=== PATIENT | female | born 1955 | race Two or more races ===

== ENCOUNTER 2019-05-19 04:54 | Emergency (ER) | payer OTHER ==
[~2019-05-19] VITALS: Ht 170.2 cm; Wt 81.6 kg
[2019-05-19] MEDS ORDERED: MORPHINE SULFATE 4 MG/ML SYR/VIAL IV ONE ×3 (06:00→13:15)
[2019-05-19] MEDS ORDERED: ONDANSETRON HCL 4 MG/2 ML VIAL IV ONE ×3 (06:00→13:15)
[2019-05-19 06:40] LABS: Basophils # (auto) 0.1 uL; Basophils % (auto) 0.5 % (0.0-2.0); Eosinophils # (auto) 0.2 uL; Eosinophils % (auto) 1.7 % (0.0-7.0); Hematocrit 41.8 % (36.0-46.0); Hemoglobin 13.5 g/dL (12.2-16.2); Lymphocytes # (auto) 1.4 uL; Lymphocytes % (auto) 12.5 % (10.0-50.0); Mean Corpuscular Hemoglobin 29.6 pg (28.0-32.0); Mean Corpuscular Hgb Conc. 32.3 g/dL (32.0-36.0); Mean Corpuscular Volume 91.7 fL (80.0-100.0); Monocytes # (auto) 0.6 uL; Monocytes % (auto) 5.6 % (0.0-12.0); Neutrophils # (auto) 8.9 uL; Neutrophils % (auto) 79.7 % (37.0-80.0); Platelet Count (auto) 229 10^3/uL (140-450); Red Blood Cells 4.56 10^6/uL (4.0-5.20); Red Cell Distribution Width 15.6 % (11.8-14.3); White Blood Cell 11.1 10^3/uL (4.4-10.8)
[2019-05-19 06:52] LABS: INR 2.22 (0.9-1.15); Partial Thromboplastin Time 32.9 sec (23.64-32.05)
[2019-05-19 08:44] LABS: Albumin 3.3 g/dL (3.4-5.0); BUN/Creatinine Ratio 20.9; Bilirubin, Total 0.3 mg/dL (0.2-1.0); Calcium 8.7 mg/dL (8.5-10.1); Total Protein 7.9 g/dL (6.4-8.2)
[2019-05-19] MEDS ORDERED: cefTRIAXone 1GM/50ML D5W 50 ML IV ONE (10:00)
[2019-05-19 13:27] VITALS: BP 171/91
== END 2019-05-19 14:07 | disposition short-term general hospital (02) ==
LOC: EDBD 04:54 → ER 04:54
DX: S42.215A Unspecified nondisplaced fracture of surgical neck of left humerus, initial encounter for closed fracture (principal); S80.02XA Contusion of left knee, initial encounter; E11.9 Type 2 diabetes mellitus without complications; E78.5 Hyperlipidemia, unspecified; Z86.73 Personal history of transient ischemic attack (TIA), and cerebral infarction without residual deficits; F17.210 Nicotine dependence, cigarettes, uncomplicated; W01.0XXA Fall on same level from slipping, tripping and stumbling without subsequent striking against object, initial encounter; Y93.89 Activity, other specified; Y99.8 Other external cause status; Y92.89 Other specified places as the place of occurrence of the external cause
CPT/HCPCS: 36415; 70450; 71045; 73030; 73562; 80053; 84484; 85025; 85610; 85730; 93005; 96365; 96375; 96376; 99285; J0696; J2270; J2405

== ENCOUNTER 2025-01-01 19:30 | Inpatient (IN) | payer MEDICARE, MEDICAID ==
[~2025-01-01] VITALS: Ht 157.5 cm; Wt 71.0 kg
[~2025-01-01 19:30] MED LIST: LEVO75TA6 PO; WARF-66 PO
--- NOTE | 2025-01-01 21:23 | DVH ---
CHEST RADIOGRAPH Indication: gen weak Technique: Single frontal view of the chest was obtained COMPARISON: None FINDINGS: Lines and Tubes: None Lungs: Clear Pleura: No effusion. No pneumothorax. Cardiomediastinal contours: Unremarkable Bones: Unremarkable IMPRESSION: No acute disease.
--- NOTE | 2025-01-01 21:41 | ED.PDOC ---
History of Present Illness HPI Comments 69-year-old female brought in by ambulance with a chief complaint of failure to thrive. EMS report that the patient's neighbors heard the patient yelling for help and called 911, for which police, firefighters and EMS arrived on scene for which they broke down the front door. When police entered they went and found the patient in the bedroom next to her who is also her undraped artist model. EMS note that the pain has been was for the past three days. Patient does have a history of dementia, blindness, diabetes and is bed-bound. Denies chills, fever, N/V/D, SOB, CP. No other associated symptoms, modifiers, recent injuries or sick contacts present at this time. Chief Complaint: Failure to Thrive Time Seen by MD: 21:30 Reviewed Notes: Nurses Notes, Medications, Allergies Allergies: Coded Allergies: NO KNOWN ALLERGIES (Unverified , 01/01/25) Information Source: Patient, Emergency Med Personnel Mode of Arrival: Ambulatory Severity: Moderate Timing: Days Duration: Since onset, Days Prehospital treatment: None Past Medical History PAST MEDICAL HISTORY: Dementia, DM, Denies Past Medical History (Other): blindness Surgical History: Denies all surgeries AUTOMOTIVE EXHAUST EMISSIONS TECHNICIAN History: No Pertinent AUTOMOTIVE EXHAUST EMISSIONS TECHNICIAN History Family History Family History: Reviewed,noncontributory to illness, Unknown Social History Smoker: Non-Smoker Alcohol: Denies ETOH Use Drugs: Denies Drug Use Lives In: Home Constitutional: denies: chills, diaphoresis, fatigue, fever, malaise, sweats, weakness, others EENTM: denies: blurred vision, double vision, ear bleeding, ear discharge, ear drainage, ear pain, ear ringing, eye pain, eye redness, hearing loss, mouth pain, mouth swelling, nasal discharge, nose bleeding, nose congestion, nose pain, photophobia, tearing, throat pain, throat swelling, voice changes, others Respiratory: denies: cough, hemoptysis, orthopnea, SOB at rest, shortness of breath, SOB with excertion, stridor, wheezing, others Cardiovascular: denies: chest pain, dizzy spells, diaphoresis, Dyspnea on exertion, edema, irregular heart beat, left arm pain, lightheadedness, palpitations, PND, syncope, others Gastrointestinal: denies: abdomen distended, abdominal pain, blood streaked bowels, constipated, diarrhea, dysphagia, difficulty swallowing, hematemesis, melena, nausea, poor appetite, poor fluid intake, rectal bleeding, rectal pain, vomiting, others Genitourinary: denies: abnormal vagina bleeding, burning, dyspareunia, dysuria, flank pain, frequency, hematuria, incontinence, pain, , vagina discharge, urgency, others Neurological: denies: dizziness, fainting, headache, left sided numbness, left sided weakness, numbness, paresthesia, pre-existing deficit, right sided numbness, right sided weakness, seizure, speech problems, tingling, tremors, weakness, others Musculoskeletal: denies: back pain, gout, joint pain, joint swelling, muscle pain, muscle stiffness, neck pain, others Integumetry: denies: bruises, change in color, change in hair/nails, dryness, laceration, lesions, lumps, rash, wounds, others Allergic/Immunocompromised: denies: Difficulty Healing, Frequent Infections, Hives, Itching, others Hematologic/Lymphatic: denies: anemia, blood clots, easy bleeding, easy bruising, swollen glands, others Endocrine: denies: excessive hunger, excessive sweating, excessive thirst, excessive urination, flushing, intolerance to cold, intolerance to heat, unexplained weight gain, unexplained weight loss, others Psychiatric: reports: others (Failure to thrive); denies: anxiety, bipolar disorder, depression, hopeless, panic disorder, schizophrenia, sleepless, suicidal All Other Systems: Reviewed and Negative Physical Exam Exam Comments Mild pain in the buttock area, chief marketing officer arrived and spoke to patient General Appearance: No Apparent Distress, Normal HEENT: Normal ENT Inspection, Pharynx Normal, TMs Normal Neck: Full Range of Motion, Non-Tender, Normal, Normal Inspection Respiratory: Chest Non-Tender, Lungs Clear, No Accessory Muscle Use, No Respiratory Distress, Normal Breath Sounds Cardiovascular: No Edema, No JVD, No Murmur, No Gallop, Normal Peripheral Pulses, Regular Rate/Rhythm Breast Exam: Deferred Gastrointestinal: No Organomegaly, Non Tender, No Pulsatile Mass, Normal Bowel Sounds, Soft Genitalia: Deferred Pelvic: Deferred Rectal: Deferred Extremities: No calf tenderness, Normal capillary refill, Normal inspection, Normal range of motion, Non-tender, No pedal edema Musculoskeletal : Apperance: Normal Neurologic: Alert, vice president for philanthropy II-XII nml as Tested, No Motor Deficits, Normal Affect, Normal Mood, No Sensory Deficits Cerebellar Function: Normal Reflexes: Normal Skin: Dry, Normal Color, Warm Lymphatic: No Adenopathy Was a procedure done? Was a procedure done?: No Differential Dx Considerations may include: Urosepsis, UTI, dementia, failure to thrive, X-Ray, Labs, Meds, VS Vital Signs Date Time Temp Pulse Resp B/P (MAP) Pulse Ox O2 Delivery O2 Flow Rate FiO2 01/01/25 19:32 99.1 106 15 160/96 99 99.1 01/01/25 19:30 107 Lab Test 01/01/25 21:32 Range/Units White Blood Count 13.8 H 4.4-10.8 10^3/uL Red Blood Count 4.05 4.0-5.20 10^6/uL Hemoglobin 12.5 12.2-16.2 g/dL Hematocrit 36.8 36.0-46.0 % Mean Corpuscular Volume 90.9 80.0-100.0 fL Mean Corpuscular Hemoglobin 31.0 28.0-32.0 pg Mean Corpuscular Hemoglobin Concent 34.1 32.0-36.0 g/dL Red Cell Distribution Width 14.2 11.8-14.3 % Platelet Count 178 140-450 10^3/uL Mean Platelet Volume 8.7 6.9-10.8 fL Neutrophils (%) (Auto) 84.2 H 37.0-80.0 % Lymphocytes (%) (Auto) 9.0 L 10.0-50.0 % Monocytes (%) (Auto) 6.6 0.0-12.0 % Eosinophils (%) (Auto) 0.0 0.0-7.0 % Basophils (%) (Auto) 0.2 0.0-2.0 % Neutrophils # (Auto) 11.6 H 1.6-8.6 10 ^3/uL Lymphocytes # (Auto) 1.2 0.4-5.4 10 ^3/uL Monocytes # (Auto) 0.9 0-1.3 10 ^3/uL Eosinophils # (Auto) 0 0-0.8 10 ^3/uL Basophils # (Auto) 0 0-0.2 10 ^3/uL Nucleated Red Blood Cells 0.0 % Sodium Level 149 H 136-145 mmol/L Potassium Level 3.6 3.5-5.1 mmol/L Chloride Level 109 H 98-107 mmol/L Carbon Dioxide Level 26 20-31 mmol/L Anion Gap 14 5-15 Blood Urea Nitrogen 39 H 9-23 mg/dL Creatinine 1.09 H 0.550-1.02 mg/dL Glomerular Filtration Rate Calc 55 >90 mL/min BUN/Creatinine Ratio 35.8 H 10.0-20.0 Serum Glucose 160 H 74-106 mg/dL Lactic Acid Level 1.8 0.4-2.0 mmol/L Calcium Level 9.4 8.7-10.4 mg/dL Total Bilirubin 0.9 0.2-1.0 mg/dL Aspartate Amino Transferase (AST) 60 H 13-40 U/L Alanine Aminotransferase (ALT) 17 7-40 U/L Alkaline Phosphatase 94 46-116 U/L Ammonia < 10 L 11-32 umol/L Total Protein 7.7 5.7-8.2 g/dL Albumin 4.5 3.2-4.8 g/dL X-Ray, Labs, Meds, VS Comment Patient will be admitted for urinary tract infection Recommend social service consult as patient's caregiver Time of 1ST Reevaluation: 22:00 Reevaluation 1ST: Unchanged Patient Education/Counseling: Diagnosis, Treatment, Prognosis Family Education/Counseling: No Family Present SEPSIS Sepsis Screen Date sepsis recognized/suspect: Jan 01, 2025 Time Sepsis recognized/suspect: 1931 Recent Procedure: No On Antibiotic Therapy: No Respiratory Rate >20: No Heart Rate >90: Yes Temp<36 C (96.8 F) or >38.3 C: No SBP <90 or MAP <65 mmHG: No New Acute Mental Status Change: No Is the patient on CPAP, BIPAP,: No Physician Orders Electrocardigram (01/01/25 19:33) Urinalysis (01/01/25 20:57) Chest Xray 1 View (01/01/25 20:57) Drug Screen (01/01/25 20:57) Sodium Chloride 0.9% (01/02/25 01:30) Ceftriaxone 1gm/50ml (Rocephin) (01/02/25 01:30) Vital Signs Date Time Temp Pulse Resp B/P (MAP) Pulse Ox O2 Delivery O2 Flow Rate FiO2 01/01/25 19:32 99.1 106 15 160/96 99 99.1 01/01/25 19:30 107 Laboratory Tests Test 01/01/25 21:32 Lactic Acid Level 1.8 mmol/L (0.4-2.0) White Blood Count 13.8 10^3/uL (4.4-10.8) H Departure 1 Departure Time of Disposition: 01:25 Impression: Primary Impression: Dehydration Additional Impressions: PAVAN (acute kidney injury) Dementia Qualified Codes: G30.9 - Alzheimer's disease, unspecified; F02.A0 - Dementia in other diseases classified elsewhere, mild, without behavioral disturbance, psychotic disturbance, mood disturbance, and anxiety Diabetes Qualified Codes: E11.69 - Type 2 diabetes mellitus with other specified complication Urinary tract infection Qualified Codes: N30.00 - Acute cystitis without hematuria Disposition: ADMITTED INPATIENT Condition: Stable Critical Care Note Critical Care Time?: No Stability Stability form required: No Heart Score Heart Score: Heart Score Response (Comments) Value History N/A 0 EKG N/A 0 Age N/A 0 Risk Factors N/A 0 Troponin N/A 0 Total 0 I personally scribed for MISTY POLLACK ([email or web address]) on 01/01/25 at 21:41. Electronically submitted by Petar Fisher ([email or web address]). MISTY POLLACK Jan 01, 2025 21:41
[2025-01-01 21:54] LABS: Hematocrit 36.8 % (36.0-46.0); Hemoglobin 12.5 g/dL (12.2-16.2); Mean Corpuscular Hemoglobin 31.0 pg (28.0-32.0); Mean Corpuscular Volume 90.9 fL (80.0-100.0); Nucleated Red Blood Cells % 0.0 %
[2025-01-01 22:01] LABS: Alanine Aminotransferase 17 U/L (7-40); Albumin 4.5 g/dL (3.2-4.8); Alkaline Phosphatase 94 U/L (46-116); Anion Gap 14 (5-15); BUN/Creatinine Ratio 35.8 (10.0-20.0); Calcium 9.4 mg/dL (8.7-10.4); Carbon Dioxide 26 mmol/L (20-31); Potassium 3.6 mmol/L (3.5-5.1); Total Protein 7.7 g/dL (5.7-8.2)
[2025-01-01 22:02] LABS: Bilirubin, Total 0.9 mg/dL (0.2-1.0)
[2025-01-01 22:05] LABS: Blood Urea Nitrogen 39 mg/dL (9-23); Chloride 109 mmol/L (98-107); Glucose 160 mg/dL (74-106); Sodium 149 mmol/L (136-145)
[2025-01-02] MEDS: SODIUM CHLORIDE 0.9% 1,000 ML IV ONE ×2 (01:30→06:38)
[2025-01-02 02:43] LABS: Hematocrit 37.0 % (36.0-46.0); Hemoglobin 12.2 g/dL (12.2-16.2); Mean Corpuscular Hemoglobin 30.2 pg (28.0-32.0); Mean Corpuscular Volume 91.8 fL (80.0-100.0); Nucleated Red Blood Cells % 0.0 %
[2025-01-02] MEDS ORDERED: DEXTROSE (50%) 50ML SYRG IV PRN (02:45)
[2025-01-02 02:58] LABS: Alanine Aminotransferase 21 U/L (7-40); Albumin 4.4 g/dL (3.2-4.8); Alkaline Phosphatase 92 U/L (46-116); Anion Gap 13 (5-15); BUN/Creatinine Ratio 31.6 (10.0-20.0); Bilirubin, Total 1.0 mg/dL (0.2-1.0); Calcium 9.4 mg/dL (8.7-10.4); Carbon Dioxide 25 mmol/L (20-31); Chloride 106 mmol/L (98-107); Potassium 3.6 mmol/L (3.5-5.1); Sodium 144 mmol/L (136-145); Total Protein 7.5 g/dL (5.7-8.2)
[2025-01-02 03:00] LABS: Creatine Kinase IFCC 1187.0 U/L (34-145)
[2025-01-02 03:02] LABS: Blood Urea Nitrogen 36 mg/dL (9-23); Glucose 136 mg/dL (74-106)
--- NOTE | 2025-01-02 03:08 | DVHHPRES ---
History of Present Illness Resident Creating Document: SHAHRZAD FLAHERTY History of Present Illness Ms. Mc is a 69-year-old bed-bound female with prior medical history of type 1 diabetes, multiple strokes, hypertension, hyperlipidemia, mild dementia, and hypothyroidism, who presents today with chief complaint of failure to thrive. history was taken from both the patient and her son Mark Anthony. They state that the patient's and primary document analyst in his sleep approximately 3 days ago and in bed next to her for that time. She was heard yelling for help by her neighbors who contacted 911, and was subsequently brought to the emergency department. The patient states she was unable to eat or drink liquids at this time. on evaluation in the ED, the patient was tachycardic and hypertensive. Initial labs show WBCs 13.8 with neutrophilia, hypernatremia, creatinine 1.09, creatinine kinase 1187, and TSH 19.62. UA is significant for U TI. Chest x-ray shows no acute disease. The patient was started on IV fluids and IV antibiotics. She was admitted for further workup and monitoring. Personal history: Type 1 diabetes mellitus, multiple strokes, hypertension, hyperlipidemia, mild dementia, and hyperthyroidism Surgical history: Denies Allergies: Coconut (anaphylaxis) Social: Son denies any previous drug, alcohol, or tobacco use, was living with her until his passing 3 days ago, her son Mark Anthony currently lives in [place] Review of Systems Review of Systems ROS is unable to be fully evaluated due to patient's baseline disorientation She currently states she is very thirsty Allergies: Coded Allergies: Coconut (Cocos Nucifera) (Verified Allergy, Severe, 01/02/25) Anaphylaxis Medications Current Medications Medications Dose Ordered Sig/Lillie Route Start Time Stop Time Status Last Admin Dose Admin Diagnostic Test (Pha) 1 strip ACHS 01/02/25 07:00 Insulin Human Regular ACHS SC 01/02/25 07:00 Dextrose 50 ml UD PRN IV 01/02/25 02:45 Lisinopril 10 mg DAILY PO 01/02/25 10:00 Atorvastatin Calcium 20 mg HS PO 01/02/25 22:00 Enoxaparin Sodium 70 mg Q12HR SC 01/02/25 02:45 UNV Sodium Chloride 1,000 ml @ 75 mls/hr [id number] IV 01/02/25 02:45 Exam Vital Signs Vital Signs Date Time Temp Pulse Resp B/P (MAP) Pulse Ox O2 Delivery O2 Flow Rate FiO2 01/01/25 19:32 99.1 106 15 160/96 99 99.1 Exam General: Patient is AOx2, follows commands HEENT: Normocephalic, atraumatic, normal reactive pupils, EOM intact, pink conjunctiva, pink dry mucous membrane, poor dentition, presence of large circular mass that is nontender to the touch and is mobile Respiratory/pulmonary: Bilateral chest expansion, no pain on palpation of chest wall, clear lungs bilaterally, vesicular murmurs present in almost all lung shaffer, no associated crackles or wheezes. Cardiovascular: Normal RRR, normal S1 and S2, no murmurs Abdomen: Abdomen nondistended, normal bowel sounds, soft, there is no pain to palpation in any of the abdominal quadrants, no palpable masses : Entire perineum and area including mons pubis has presence of bright red beefy rash that is painful to the touch, presence of Rodas catheter Extremities: No deformities, there is no peripheral edema present at the lower extremities, normal pulses Skin: Presence of sacral edema with minor breakdown of skin (decubitus sacral ulcer stage I present on admission) Neurological: Intact cranial nerves with no focal neurologic deficits, study limited due to patient's underlying disorientation Labs/Xrays Labs Test 01/02/25 02:09 01/01/25 21:32 Range/Units White Blood Count 12.1 H 4.4-10.8 10^3/uL Red Blood Count 4.03 4.0-5.20 10^6/uL Hemoglobin 12.2 12.2-16.2 g/dL Hematocrit 37.0 36.0-46.0 % Mean Corpuscular Volume 91.8 80.0-100.0 fL Mean Corpuscular Hemoglobin 30.2 28.0-32.0 pg Mean Corpuscular Hemoglobin Concent 32.9 32.0-36.0 g/dL Red Cell Distribution Width 14.4 H 11.8-14.3 % Platelet Count 178 140-450 10^3/uL Mean Platelet Volume 8.9 6.9-10.8 fL Neutrophils (%) (Auto) 76.0 37.0-80.0 % Lymphocytes (%) (Auto) 16.4 10.0-50.0 % Monocytes (%) (Auto) 7.5 0.0-12.0 % Eosinophils (%) (Auto) 0.0 0.0-7.0 % Basophils (%) (Auto) 0.1 0.0-2.0 % Neutrophils # (Auto) 9.2 H 1.6-8.6 10 ^3/uL Lymphocytes # (Auto) 2.0 0.4-5.4 10 ^3/uL Monocytes # (Auto) 0.9 0-1.3 10 ^3/uL Eosinophils # (Auto) 0 0-0.8 10 ^3/uL Basophils # (Auto) 0 0-0.2 10 ^3/uL Nucleated Red Blood Cells 0.0 % Sodium Level 144 # 136-145 mmol/L Potassium Level 3.6 3.5-5.1 mmol/L Chloride Level 106 98-107 mmol/L Carbon Dioxide Level 25 20-31 mmol/L Anion Gap 13 5-15 Blood Urea Nitrogen 36 H 9-23 mg/dL Creatinine 1.14 H 0.550-1.02 mg/dL Glomerular Filtration Rate Calc 52 >90 mL/min BUN/Creatinine Ratio 31.6 H 10.0-20.0 Serum Glucose 136 H 74-106 mg/dL Calcium Level 9.4 8.7-10.4 mg/dL Total Bilirubin 1.0 0.2-1.0 mg/dL Aspartate Amino Transferase (AST) 58 H 13-40 U/L Alanine Aminotransferase (ALT) 21 7-40 U/L Alkaline Phosphatase 92 46-116 U/L Total Protein 7.5 5.7-8.2 g/dL Albumin 4.4 3.2-4.8 g/dL Hemoglobin A1c 7.1 H <5.7 % A1C Lactic Acid Level 1.8 0.4-2.0 mmol/L Phosphorus Level 3.2 2.4-5.1 mg/dL Ammonia < 10 L 11-32 umol/L Creatine Kinase 1187 H 34-145 U/L Vitamin B12 Level 825 211-911 pg/mL SEPSIS Sepsis Screen Date sepsis recognized/suspect: Jan 01, 2025 Time Sepsis recognized/suspect: 1931 Recent Procedure: No On Antibiotic Therapy: No Respiratory Rate >20: No Heart Rate >90: Yes Temp<36 C (96.8 F) or >38.3 C: No SBP <90 or MAP <65 mmHG: No New Acute Mental Status Change: No Is the patient on CPAP, BIPAP,: No Physician Orders Electrocardigram (01/01/25 19:33) Urinalysis (01/01/25 20:57) Chest Xray 1 View (01/01/25 20:57) Drug Screen (01/01/25 20:57) Thyroid Stimulating Hormone (01/02/25 01:47) Vitamin D, 25-Hydroxy (01/02/25 01:47) Blood Culture (01/02/25 01:47) Drug Screen (01/02/25 01:47) Urine Bacterial Culture (01/02/25 01:47) B-Type Natriuretic Peptide (01/02/25 01:57) Admit (01/02/25 02:36) Allergies (01/02/25 02:36) Code Status (01/02/25 02:36) Condition: Stable (01/02/25 02:36) Stat Ekg For Chest Pain (01/02/25 02:36) Notify Md Of Changes From Base (01/02/25 02:36) Emergency Dysrhythmia Protocol (01/02/25 02:36) Rhythm Strips Once Every Shift (01/02/25 02:36) Glucose Blood (Accu-Chek Comfort Curve T (01/02/25 07:00) Insulin R (Human) (Insulin R) (01/02/25 07:00) Dextrose 50% Syringe (01/02/25 02:45) Lisinopril Tablet (Zestril Tablet) (01/02/25 10:00) Atorvastatin (Lipitor) (01/02/25 22:00) Enoxaparin Sodium (Lovenox) (01/02/25 02:45) Consistent Carb(Ccho)Diabetes (01/02/25 Breakfast) Sodium Chloride 0.9% (01/02/25 02:45) Sodium Chloride 0.9% (01/02/25 02:45) Communication Order (01/02/25 02:36) * Grain Blender Consult (01/02/25 ) Vital Signs Date Time Temp Pulse Resp B/P (MAP) Pulse Ox O2 Delivery O2 Flow Rate FiO2 01/01/25 19:32 99.1 106 15 160/96 99 99.1 01/01/25 19:30 107 Laboratory Tests Test 01/01/25 21:32 01/02/25 02:09 Lactic Acid Level 1.8 mmol/L (0.4-2.0) White Blood Count 13.8 10^3/uL (4.4-10.8) H 12.1 10^3/uL (4.4-10.8) H Assessment/Plan Assessment/Plan Assessment and Plan: Dehydration - IV fluids Rhabdomyolysis likely due to above, Creatine Kinase 1157 - NS 1000 cc bolus once - NS 500 bolus once - NS maintenance 100 cc/hr - Monitor CK and renal function PAVAN on CKD likely due to VMN/hemodynamically mediated - Monitor renal function - Avoid nephrotoxic drugs Hypernatremia, likely due to dehydration - Monitor sodium Acute Cystitis with microscopic hematuria - Ceftriaxone 1 g IV daily - Urine culture has been ordered Sacral Decubitus Ulcer, possibly stage 1 POA - Wound culture has been ordered - Wound care consult has been ordered - Vancomycin per pharmacy protocol Cutaneous Candidiasis - Clotrimazole 1 application q 12 hours Type 1 Diabetes Mellitus with hyperglycemia, HbA1c 7.1 - Mild SSI - Accu-chek Hypothyroidism, TSH 16.99 - FT4 and Total T3 pending - Indicated Levothyroxine 25 ug PO daily. Evaluate titrating per patient's response Hypertension - Lisinopril 10 ng OI daily Hyperlipidemia - Atorvastatin 20 mg PO HS Mild Dementia History of Multiple Strokes, patient is bed-bound - q2 turns to avoid pressure ulcers Diet: Full Liquid Diet DVT peophylaxis: Patient is on therapeutic dose of Enoxaparin GI prophylaxis: Not indicated Case discussed with Dr. Collins Goals of care discussed with the patient's son, Mark Anthony, ([phone]), FULL CODE. The patient's son states that the patient has a DNR signed, however, he is unsure where this document is and he is currently out of state. Plan discussed with: Patient, Son, Other (Nurses) My Orders Orders - SHAHRZAD FLAHERTY Procedure Category Date Status Time Thyroid Stimulating LAB 01/02/25 In Process Hormone 01:47 Vitamin D, 25-Hydroxy LAB 01/02/25 In Process 01:47 Blood Culture FRED 01/02/25 In Process 01:47 Drug Screen LAB 01/02/25 Logged 01:47 Urine Bacterial FRED 01/02/25 Logged Culture 01:47 Admit ADMIT 01/02/25 Transmitted 02:36 Allergies DAVID 01/02/25 In Process 02:36 Code Status CODE 01/02/25 Transmitted 02:36 Condition: Stable DAVID 01/02/25 In Process 02:36 Stat Ekg For Chest [facility] 01/02/25 In Process Pain 02:36 Notify Md Of Changes [facility] 01/02/25 In Process From Base 02:36 Emergency Dysrhythmia [facility] 01/02/25 In Process Protocol 02:36 Rhythm Strips Once DAVID 01/02/25 In Process Every Shift 02:36 Glucose Blood PHA 01/02/25 In Process (Accu-Chek Comfort 07:00 Insulin R (Human) PHA 01/02/25 In Process (Insulin R) 07:00 Dextrose 50% Syringe PHA 01/02/25 In Process 02:45 Lisinopril Tablet PHA 01/02/25 In Process (Zestril Tablet) 10:00 Atorvastatin (Lipitor) PHA 01/02/25 In Process 22:00 Enoxaparin Sodium PHA 01/02/25 Logged (Lovenox) 02:45 Consistent DIET 01/02/25 Transmitted Carb(Ccho)Diabetes Breakfast Sodium Chloride 0.9% PHA 01/02/25 In Process 02:45 Sodium Chloride 0.9% PHA 01/02/25 In Process 02:45 Communication Order ORDERS 01/02/25 Transmitted 02:36 * Grain Blender CONS 01/02/25 Transmitted Consult Date of Service: Jan 02, 2025 Billing Provider: MATTY COLLINS MD Common Visit Codes: [id number] INP/OBS CARE (HIGH) Secondary Visit Codes: 08281-[id number] CARE PLAN 30 MINUTES SHAHRZAD FLAHERTY RESIDENT Jan 02, 2025 03:08 PATRICIA HOLLIS RESIDENT Jan 02, 2025 08:21
[2025-01-02] MEDS: SODIUM CHLORIDE 0.9% 500 ML IV ONE ×3 (03:10→17:17)
[2025-01-02] MEDS ORDERED: VANCOMYCIN PER PHARMACY 0 MG IV SCH (03:30)
[2025-01-02] MEDS: CLOTRIMAZOLE 1 % CREAM 15GM TOP ONE (03:30)
[2025-01-02] MEDS: SODIUM CHLORIDE 0.9% 1,000 ML IV SCH ×2 (03:41→16:18)
[2025-01-02 04:08] LABS: Urine Protein, UAD 1+ (Negative)
[2025-01-02 04:53] LABS: INR 1.03 (0.9-1.15); Partial Thromboplastin Time 24.9 SEC (24.5-34.5); Prothrombin Time 10.9 sec (9.3-11.8)
[2025-01-02] MEDS: ATORVASTATIN 20 MG TAB PO SCH (05:26)
[2025-01-02] MEDS: VANCOMYCIN 1.5GM/250ML IV ONE (05:26)
[2025-01-02 05:47] LABS: Amphetamine Screen, Urine Neg (NEGATIVE); Barbiturate Scree,Urine Neg (NEGATIVE); Benzodiazephine Screen, Urine Neg (NEGATIVE); Cannabinoid Screen, Urine Neg (NEGATIVE); Cocaine Screen, Urine Neg (NEGATIVE); Opiate Scree,Urine Neg (NEGATIVE); Phencyclidine Screen, Urine Neg (NEGATIVE)
[2025-01-02] MEDS: ACCU-CHEK COMFORT CURVE STRIP VI SCH (06:55)
[2025-01-02] MEDS: InsuLIN REG 1unit/0.01ml Soln (100units/ml) SC SCH (06:56)
[2025-01-02 07:54] VITALS: PULSE 71; RESP 13; O2SAT 100
[2025-01-02] MEDS: ENOXAPARIN SOD 100 MG/1 ML SYRINGE SC SCH (09:01)
[2025-01-02] MEDS: LEVOTHYROXINE SODIUM 25 MCG TAB PO ONE (09:18)
[2025-01-02 09:32] LABS: Free T4 (Free Thyroxine) 0.74 ng/dL (0.89-1.76)
[2025-01-02] MEDS: CLOTRIMAZOLE 1 % CREAM 15GM TOP SCH (09:35)
[2025-01-02] MEDS: LISINOPRIL 5 MG TAB PO SCH (09:35)
--- NOTE | 2025-01-02 09:55 | DVH ---
ULTRASOUND SOFT TISSUE HEAD AND NECK CLINICAL INDICATION: ELEVATED TSH TECHNIQUE: Multiple real time sonographic images of the thyroid were obtained. FINDINGS: The right thyroid gland measures 3 x 1 x 1 cm. The left thyroid gland measures approximately 3 x 1 x 2 cm. The isthmus measures 0.5 cm. 3 x 2 x 4 cm right sub[address]ibular mass. CT soft tissue neck is recommended.. IMPRESSION: 3 x 2 x 4 cm right submandibular mass. CT soft tissue neck is recommended..
--- NOTE | 2025-01-02 13:26 | DVHPNRES ---
Progress Note Date Seen: Jan 02, 2025 Resident Creating Document: MAL PAZ Medical Necessity Reason Pt with a Central, PICC or Fol: Yes The following are medically ne: Rodas Catheter Subjective Review of Systems Patient is a 69-year-old bed-bound female with past medical history of type 1 diabetes, multiple strokes, hypertension, hyperlipidemia, mild dementia, and hypothyroidism, presented to [facility] ED with complaint of failure to thrive. History was taken from both the patient and her son Mark Anthony. They state that the patient's and primary gopherman in his sleep approximately 3 days ago and in bed next to her for that time. She was heard yelling for help by her neighbors who contacted 911, and was subsequently brought to the emergency department. The patient reports that her , who had been her primary caregiver, three days ago. Since his passing, she states she has not eaten or drunk anything. Initial labs show WBCs 13.8 with neutrophilia, hypernatremia, creatinine 1.09, creatinine kinase 1187, and TSH 19.62. UA is significant for UTI. Chest x-ray shows no acute disease. The patient was started on IV fluids and IV antibiotics. Ultrasound soft tissue head and neck shows 3 x 2 x 4 cm right submandibular mass. Past medical history: Type 1 diabetes mellitus, multiple strokes, hypertension, hyperlipidemia, mild dementia, hyperthyroidism Past surgical history: Denied Social & Personal history: Son denies any previous drug, alcohol, or tobacco use, was living with her until his passing 3 days ago, her son Mark Anthony currently lives in [place] Allergies: Coconut Patient seen and examined at bedside. ROS is unable to be fully evaluated due to patient's baseline disorientation. Objective vital signs Vital Sign Date Time Temp Pulse Resp B/P (MAP) Pulse Ox O2 Delivery O2 Flow Rate FiO2 01/02/25 13:00 63 10 110/50 (70) 98 01/02/25 07:54 98.9 98.9 01/02/25 07:54 Room Air* 0 21 medications Current Medications Medications Dose Ordered Sig/Lillei Route Start Time Stop Time Status Last Admin Dose Admin Diagnostic Test (Pha) 1 strip ACHS 01/02/25 07:00 01/02/25 12:32 1 STRIP Insulin Human Regular ACHS SC 01/02/25 07:00 01/02/25 12:34 2 UNITS Dextrose 50 ml UD PRN IV 01/02/25 02:45 Lisinopril 10 mg DAILY PO 01/02/25 10:00 01/02/25 09:35 10 MG Atorvastatin Calcium 20 mg HS PO 01/02/25 22:00 01/02/25 05:26 20 MG Enoxaparin Sodium 70 mg Q12HR SC 01/02/25 02:45 01/02/25 09:35 70 MG Vancomycin HCl 0 ml @ 0 mls/hr UD IV 01/02/25 03:30 Ceftriaxone Sodium 50 ml @ 100 mls/hr DAILY@09 IV 01/02/25 09:00 01/02/25 09:18 100 MLS/HR Clotrimazole 1 applic Q12HR TOP 01/02/25 10:00 01/02/25 09:35 1 APPLIC Levothyroxine Sodium 25 mcg QAM@0600 PO 01/03/25 06:00 Sodium Chloride 1,000 ml @ 100 mls/hr Q10H IV 01/02/25 16:15 Examination General: Patient is AOx2, follows commands HEENT: Normocephalic, atraumatic, normal reactive pupils, EOM intact, pink conjunctiva, pink dry mucous membrane, poor dentition, presence of large circular mass that is nontender to the touch and is mobile Respiratory/pulmonary: Bilateral chest expansion, no pain on palpation of chest wall, clear lungs bilaterally, vesicular murmurs present in almost all lung shaffer, no associated crackles or wheezes. Cardiovascular: Normal RRR, normal S1 and S2, no murmurs Abdomen: Abdomen nondistended, normal bowel sounds, soft, there is no pain to palpation in any of the abdominal quadrants, no palpable masses : Entire perineum and area including mons pubis has presence of bright red beefy rash that is painful to the touch, presence of Rodas catheter Extremities: No deformities, there is no peripheral edema present at the lower extremities, normal pulses Skin: Presence of sacral edema with minor breakdown of skin (decubitus sacral ulcer stage I present on admission) Neurological: Intact cranial nerves with no focal neurologic deficits, study limited due to patient's underlying disorientation laboratory and microbiology Laboratory Tests 01/02/25 02:09 Test 01/02/25 02:09 Range/Units Serum Glucose 136 H 74-106 mg/dL Labs and/or images reviewed: Labs reviewed by me, Image(s) reviewed by me Problem List/Assessment/Plan Problem List/Assessment/Plan Assessment and Plan: Dehydration - IV fluids Rhabdomyolysis likely due to above, Creatine Kinase 1157 - NS 1000 cc bolus once - NS 500 bolus once - NS maintenance 100 cc/hr - Monitor CK and renal function PAVAN on CKD likely due to VMN/hemodynamically mediated - Monitor renal function - Avoid nephrotoxic drugs Hypernatremia, likely due to dehydration - Monitor sodium Acute Cystitis with microscopic hematuria - Ceftriaxone 1 g IV daily - Urine culture has been ordered Sacral Decubitus Ulcer, possibly stage 1 POA - Wound culture has been ordered - Wound care consult has been ordered - Vancomycin per pharmacy protocol Cutaneous Candidiasis - Clotrimazole 1 application q 12 hours Type 1 Diabetes Mellitus with hyperglycemia, HbA1c 7.1 - Mild SSI - Accu-chek Hypothyroidism, TSH 16.99 ? Limpoma - ULTRASOUND SOFT TISSUE HEAD AND NECK: 3 x 2 x 4 cm right submandibular mass. - FT4 and Total T3 pending - Levothyroxine 50 mcg PO daily Hypertension - Lisinopril 10 mg OI daily Hyperlipidemia - Atorvastatin 20 mg PO HS Mild Dementia History of Multiple Strokes, patient is bed-bound - q2 turns to avoid pressure ulcers Diet: Full Liquid Diet DVT peophylaxis: Enoxaparin 70 mg GI prophylaxis: Not indicated Goals of care: Full code, discussed for >16 minutes on 01/02/25 Plan discussed with patient Plan discussed with Dr. Perez Plan discussed with: Son, Other (RN) My Orders My Orders Orders - MAL PAZ Procedure Category Date Status Time Complete Blood Count LAB 01/03/25 Verified 04:00 Comprehensive LAB 01/03/25 Verified Metabolic Panel 04:00 Date of Service: Jan 02, 2025 Billing Provider: NANNETTE PEREZ MD Common Visit Codes: [id number] INP/OBS CARE(HIGH) MAL PAZ Jan 02, 2025 13:26 NANNETTE PEREZ MD Jan 04, 2025 21:18
[2025-01-02 20:00] VITALS: PULSE 65; RESP 18; O2SAT 100
[2025-01-02 21:00] VITALS: BP 103/56; PULSE 65; RESP 18; TEMP 97.3; O2SAT 100
[2025-01-02] MEDS: ENOXAPARIN SOD 80 MG/0.8ML SYRINGE SC SCH (22:42)
[2025-01-03] VITALS (7 sets, daily range): BP systolic 103–131; BP diastolic 58–82; PULSE 51–72; RESP 16–19; TEMP 97–98.3; O2SAT 90–99
[2025-01-03] MEDS ORDERED: LEVOTHYROXINE SODIUM 25 MCG TAB PO SCH (06:00)
[2025-01-03] MEDS: LEVOTHYROXINE SODIUM 25 MCG TAB PO SCH (06:04)
[2025-01-03 07:29] LABS: Hematocrit 32.3 % (36.0-46.0); Hemoglobin 10.8 g/dL (12.2-16.2); Mean Corpuscular Hemoglobin 31.0 pg (28.0-32.0); Mean Corpuscular Volume 92.2 fL (80.0-100.0); Nucleated Red Blood Cells % 0.1 %
[2025-01-03 09:28] LABS: Alanine Aminotransferase 21 U/L (7-40); Albumin 3.4 g/dL (3.2-4.8); Alkaline Phosphatase 76 U/L (46-116); Anion Gap 13 (5-15); BUN/Creatinine Ratio 27.5 (10.0-20.0); Bilirubin, Total 0.7 mg/dL (0.2-1.0); Blood Urea Nitrogen 19 mg/dL (9-23); Glucose 88 mg/dL (74-106); Sodium 141 mmol/L (136-145); Total Protein 5.8 g/dL (5.7-8.2)
[2025-01-03 09:50] LABS: Calcium 8.1 mg/dL (8.7-10.4); Carbon Dioxide 19 mmol/L (20-31); Chloride 109 mmol/L (98-107); Potassium 3.1 mmol/L (3.5-5.1)
[2025-01-03] MEDS: POTASSIUM EFFERVESENT TAB 25 MEQ PO ONE (13:18)
--- NOTE | 2025-01-03 16:15 | DVHPNRES ---
Progress Note Date Seen: Jan 03, 2025 Resident Creating Document: MAL PAZ Medical Necessity Reason Pt with a Central, PICC or Fol: Yes The following are medically ne: Rodas Catheter Subjective Review of Systems Patient is a 69-year-old bed-bound female with past medical history of type 1 diabetes, multiple strokes, hypertension, hyperlipidemia, mild dementia, and hypothyroidism, presented to [facility] ED with complaint of failure to thrive. History was taken from both the patient and her son Mark Anthony. They state that the patient's and primary medical psychotherapist in his sleep approximately 3 days ago and in bed next to her for that time. She was heard yelling for help by her neighbors who contacted 911, and was subsequently brought to the emergency department. The patient reports that her , who had been her primary caregiver, three days ago. Since his passing, she states she has not eaten or drunk anything. Initial labs show WBCs 13.8 with neutrophilia, hypernatremia, creatinine 1.09, creatinine kinase 1187, and TSH 19.62. UA is significant for UTI. Chest x-ray shows no acute disease. The patient was started on IV fluids and IV antibiotics. Ultrasound soft tissue head and neck shows 3 x 2 x 4 cm right submandibular mass. Patient was seen and examined at bedside. Overnight events were reviewed. Election Judge were consulted due to the patient's dementia and recent loss of her caregiver. Her son, Mark Anthony Mc ([phone]), lives out of state and is involved in discharge planning. The patient is on cardiac diet with Ace supplement to support wound healing. Objective vital signs Vital Sign Date Time Temp Pulse Resp B/P (MAP) Pulse Ox O2 Delivery O2 Flow Rate FiO2 01/03/25 13:00 97.6 53 16 103/58 (73) 97 97.6 01/03/25 07:30 Room Air* 0 21 Total Intake and Output 01/02/25 01/02/25 01/03/25 15:00 23:00 07:00 Intake Total 50 ml 675 ml Output Total 650 ml Balance 50 ml 25 ml medications Current Medications Medications Dose Ordered Sig/Lillie Route Start Time Stop Time Status Last Admin Dose Admin Diagnostic Test (Pha) 1 strip ACHS 01/02/25 07:00 01/03/25 11:30 1 STRIP Insulin Human Regular ACHS SC 01/02/25 07:00 01/03/25 12:07 3 UNITS Dextrose 50 ml UD PRN IV 01/02/25 02:45 Lisinopril 10 mg DAILY PO 01/02/25 10:00 01/03/25 09:46 10 MG Atorvastatin Calcium 20 mg HS PO 01/02/25 22:00 01/02/25 05:26 20 MG Ceftriaxone Sodium 50 ml @ 100 mls/hr DAILY@09 IV 01/02/25 09:00 01/03/25 09:36 100 MLS/HR Clotrimazole 1 applic Q12HR TOP 01/02/25 10:00 01/02/25 09:35 1 APPLIC Levothyroxine Sodium 50 mcg QAM@0600 PO 01/03/25 06:00 01/03/25 06:04 50 MCG Enteral Nutritional Formula 240 ml BIDWM PO 01/03/25 18:00 Examination General: Patient is AOx2, follows commands HEENT: Normocephalic, atraumatic, normal reactive pupils, EOM intact, pink conjunctiva, pink dry mucous membrane, poor dentition, presence of large circular mass that is nontender to the touch and is mobile Respiratory/pulmonary: Bilateral chest expansion, no pain on palpation of chest wall, clear lungs bilaterally, vesicular murmurs present in almost all lung shaffer, no associated crackles or wheezes. Cardiovascular: Normal RRR, normal S1 and S2, no murmurs Abdomen: Abdomen nondistended, normal bowel sounds, soft, there is no pain to palpation in any of the abdominal quadrants, no palpable masses : Entire perineum and area including mons pubis has presence of bright red beefy rash that is painful to the touch, presence of Rodas catheter Extremities: No deformities, there is no peripheral edema present at the lower extremities, normal pulses Skin: Presence of sacral edema with minor breakdown of skin (decubitus sacral ulcer stage I present on admission) Neurological: Intact cranial nerves with no focal neurologic deficits, study limited due to patient's underlying disorientation laboratory and microbiology Laboratory Tests 01/03/25 06:31 Test 01/03/25 06:31 Range/Units Serum Glucose 88 74-106 mg/dL Microbiology Date/Time Source Procedure Growth Status 01/02/25 03:35 Voided Urine Urine Culture - Preliminary Resulted 01/02/25 02:09 Blood Blood Culture - Preliminary NO GROWTH AFTER 24 HOURS OF INCUBATION. Resulted Labs and/or images reviewed: Labs reviewed by me, Image(s) reviewed by me Problem List/Assessment/Plan Problem List/Assessment/Plan Assessment and Plan: Dehydration - IV fluids Rhabdomyolysis likely due to above, Creatine Kinase 1187 > 1190 > 840 downtrending - NS 1000 cc bolus once - NS 500 bolus once - NS maintenance 100 cc/hr - Monitor CK and renal function PAVAN on CKD likely due to VMN/hemodynamically mediated - Monitor renal function - Avoid nephrotoxic drugs Acute Cystitis with microscopic hematuria - Ceftriaxone Sodium 50 ml IV daily - Urine Bacterial Culture Preliminary >100,000 CFU/mL Gram Negative Rods Sacral Decubitus Ulcer, possibly stage 1 POA - Wound culture has been ordered - Wound care consult has been ordered - Vancomycin per pharmacy protocol Cutaneous Candidiasis - Clotrimazole 1 application q 12 hours Type 1 Diabetes Mellitus with hyperglycemia, HbA1c 7.1 - Mild SSI - Accu-chek Hypothyroidism, TSH 16.99 ? Limpoma - ULTRASOUND SOFT TISSUE HEAD AND NECK: 3 x 2 x 4 cm right submandibular mass. - FT4 and Total T3 pending - Levothyroxine 50 mcg PO daily Hypertension - Lisinopril 10 mg OI daily Hyperlipidemia - Atorvastatin 20 mg PO HS Mild Dementia History of Multiple Strokes, patient is bed-bound - q2 turns to avoid pressure ulcers Diet: Cardiac DVT prophylaxis: Enoxaparin 70 mg GI prophylaxis: Not indicated Goals of care: Full code, discussed for >16 minutes on 01/03/25 Plan discussed with patient Plan discussed with Dr. Guzman Plan discussed with: Other (RN) My Orders My Orders Orders - MAL PAZ Procedure Category Date Status Time Nutritional PHA 01/03/25 In Process Supplements (Glucerna 18:00 Complete Blood Count LAB 01/04/25 Verified 04:00 Comprehensive LAB 01/04/25 Verified Metabolic Panel 04:00 Dietary Evaluation Review Comments: CCHO-60 Cardiac Diet with Ace for wound healing and Glucerna BID 240ml PO supplements Expected Outcomes/Goals: Promote wound healing process Date of Service: Jan 03, 2025 Billing Provider: SHANELL GUZMAN MD Common Visit Codes: [id number] INP/OBS CARE(HIGH) MAL PAZ Jan 03, 2025 16:15 SHANELL GUZMAN MD Jan 03, 2025 22:32
[2025-01-03] MEDS: Glucerna Carbsteady SHAKE Vanilla 8oz PO SCH (17:53)
[2025-01-03] MEDS ORDERED: Juven Fruit Punch Powder PACKET 28.8gm PO SCH (18:00)
[2025-01-04 01:00] VITALS: BP 122/60; PULSE 67; RESP 18; TEMP 98; O2SAT 99
[2025-01-04 05:00] VITALS: BP 123/76; PULSE 68; RESP 18; TEMP 98.2; O2SAT 96
[2025-01-04 06:07] LABS: Hematocrit 31.9 % (36.0-46.0); Hemoglobin 10.7 g/dL (12.2-16.2); Mean Corpuscular Hemoglobin 30.6 pg (28.0-32.0); Mean Corpuscular Volume 91.1 fL (80.0-100.0); Nucleated Red Blood Cells % 0.0 %
[2025-01-04 06:30] LABS: Alanine Aminotransferase 27 U/L (7-40); Alkaline Phosphatase 76 U/L (46-116); Anion Gap 9 (5-15); BUN/Creatinine Ratio 23.3 (10.0-20.0); Bilirubin, Total 0.5 mg/dL (0.2-1.0); Blood Urea Nitrogen 17 mg/dL (9-23); Carbon Dioxide 26 mmol/L (20-31); Potassium 3.9 mmol/L (3.5-5.1); Sodium 142 mmol/L (136-145)
[2025-01-04 06:35] LABS: Albumin 3.2 g/dL (3.2-4.8); Calcium 8.0 mg/dL (8.7-10.4); Chloride 107 mmol/L (98-107); Glucose 107 mg/dL (74-106); Total Protein 5.2 g/dL (5.7-8.2)
[2025-01-04 08:00] VITALS: PULSE 61; RESP 16; O2SAT 97
[2025-01-04 12:48] VITALS: BP 105/50; PULSE 65; RESP 16; TEMP 97.8; O2SAT 97
--- NOTE | 2025-01-04 16:04 | DVHPNRES ---
Progress Note Date Seen: Jan 04, 2025 Resident Creating Document: MAL PAZ Medical Necessity Reason Pt with a Central, PICC or Fol: Yes The following are medically ne: Rodas Catheter Subjective Review of Systems Patient is a 69-year-old bed-bound female with past medical history of type 1 diabetes, multiple strokes, hypertension, hyperlipidemia, mild dementia, and hypothyroidism, presented to [facility] ED with complaint of failure to thrive. History was taken from both the patient and her son Mark Anthony. They state that the patient's and primary information systems auditor in his sleep approximately 3 days ago and in bed next to her for that time. She was heard yelling for help by her neighbors who contacted 911, and was subsequently brought to the emergency department. The patient reports that her , who had been her primary caregiver, three days ago. Since his passing, she states she has not eaten or drunk anything. Initial labs show WBCs 13.8 with neutrophilia, hypernatremia, creatinine 1.09, creatinine kinase 1187, and TSH 19.62. UA is significant for UTI. Chest x-ray shows no acute disease. The patient was started on IV fluids and IV antibiotics. Ultrasound soft tissue head and neck shows 3 x 2 x 4 cm right submandibular mass. 01/03: Patient was seen and examined at bedside. Overnight events were reviewed. Roll Forger were consulted due to the patient's dementia and recent loss of her caregiver. Her son, Mark Anthony Mc ([phone]), lives out of state and is involved in discharge planning. The patient is on cardiac diet with Ace supplement to support wound healing. 01/04: Patient was seen and examined at bedside. Overnight events were reviewed. The patient is awake and alert with intermittent confusion. Breathing is unlabored on room air, and there are no signs of distress, shortness of breath, or pain. We will discuss hospice care options with Dr. Mckoy regarding the patient's overall condition and prognosis. Objective vital signs Vital Sign Date Time Temp Pulse Resp B/P (MAP) Pulse Ox O2 Delivery O2 Flow Rate FiO2 01/04/25 12:48 97.8 65 16 105/50 (68) 97 97.8 01/04/25 08:00 Room Air* 0 21 Total Intake and Output 01/03/25 01/03/25 01/04/25 15:00 23:00 07:00 Intake Total 50 ml 1545 ml 500 ml Output Total 500 ml 1650 ml Balance 50 ml 1045 ml -1150 ml medications Current Medications Medications Dose Ordered Sig/Lillie Route Start Time Stop Time Status Last Admin Dose Admin Diagnostic Test (Pha) 1 strip ACHS 01/02/25 07:00 01/04/25 11:30 1 STRIP Insulin Human Regular ACHS SC 01/02/25 07:00 01/04/25 12:26 3 UNITS Dextrose 50 ml UD PRN IV 01/02/25 02:45 Lisinopril 10 mg DAILY PO 01/02/25 10:00 01/04/25 10:02 10 MG Atorvastatin Calcium 20 mg HS PO 01/02/25 22:00 01/03/25 21:45 20 MG Ceftriaxone Sodium 50 ml @ 100 mls/hr DAILY@09 IV 01/02/25 09:00 01/04/25 10:01 100 MLS/HR Clotrimazole 1 applic Q12HR TOP 01/02/25 10:00 01/04/25 10:02 1 APPLIC Levothyroxine Sodium 50 mcg QAM@0600 PO 01/03/25 06:00 01/04/25 07:13 50 MCG Enteral Nutritional Formula 240 ml BIDWM PO 01/03/25 18:00 01/04/25 08:00 240 ML Acetaminophen/ Hydrocodone Bitart 1 tab Q6HPRN PRN PO 01/03/25 16:15 Examination General: Patient is AOx2, follows commands HEENT: Normocephalic, atraumatic, normal reactive pupils, EOM intact, pink conjunctiva, pink dry mucous membrane, poor dentition, presence of large circular mass that is nontender to the touch and is mobile Respiratory/pulmonary: Bilateral chest expansion, no pain on palpation of chest wall, clear lungs bilaterally, vesicular murmurs present in almost all lung shaffer, no associated crackles or wheezes. Cardiovascular: Normal RRR, normal S1 and S2, no murmurs Abdomen: Abdomen nondistended, normal bowel sounds, soft, there is no pain to palpation in any of the abdominal quadrants, no palpable masses : Entire perineum and area including mons pubis has presence of bright red beefy rash that is painful to the touch, presence of Rodas catheter Extremities: No deformities, there is no peripheral edema present at the lower extremities, normal pulses Skin: Presence of sacral edema with minor breakdown of skin (decubitus sacral ulcer stage I present on admission) Neurological: Intact cranial nerves with no focal neurologic deficits, study limited due to patient's underlying disorientation laboratory and microbiology Laboratory Tests 01/04/25 05:50 Test 01/04/25 05:50 Range/Units Serum Glucose 107 H 74-106 mg/dL Microbiology Date/Time Source Procedure Growth Status 01/02/25 03:35 Voided Urine Urine Culture - Final Escherichia coli Complete 01/02/25 02:09 Blood Blood Culture - Preliminary NO GROWTH AFTER 48 HOURS OF INCUBATION. Resulted Labs and/or images reviewed: Labs reviewed by me, Image(s) reviewed by me Problem List/Assessment/Plan Problem List/Assessment/Plan Assessment and Plan: Dehydration - IV fluids Rhabdomyolysis likely due to above, Creatine Kinase 1187 > 1190 > 840 > 706 downtrending - NS 1000 cc bolus once - NS 500 bolus once - NS maintenance 100 cc/hr - Monitor CK and renal function PAVAN on CKD likely due to VMN/hemodynamically mediated - Monitor renal function - Avoid nephrotoxic drugs Acute Cystitis with microscopic hematuria - Ceftriaxone Sodium 50 ml IV daily - Urine Bacterial Culture Preliminary >100,000 CFU/mL Gram Negative Rods E scherichia coli Sacral Decubitus Ulcer, possibly stage 1 POA - Wound culture has been ordered - Wound care consult has been ordered - Vancomycin per pharmacy protocol Cutaneous Candidiasis - Clotrimazole 1 application q 12 hours Type 1 Diabetes Mellitus with hyperglycemia, HbA1c 7.1 - Mild SSI - Accu-chek Hypothyroidism, TSH 16.99 ? Limpoma - ULTRASOUND SOFT TISSUE HEAD AND NECK: 3 x 2 x 4 cm right submandibular mass. - FT4 and Total T3 pending - Levothyroxine 50 mcg PO daily Hypertension - Lisinopril 10 mg OI daily Hyperlipidemia - Atorvastatin 20 mg PO HS Mild Dementia History of Multiple Strokes, patient is bed-bound - q2 turns to avoid pressure ulcers Diet: Soft DVT prophylaxis: Enoxaparin 70 mg GI prophylaxis: Not indicated Goals of care: Full code, discussed for >16 minutes on 01/04/25 Plan discussed with patient Plan discussed with Dr. Guzman Plan discussed with: Patient, Other (RN) My Orders My Orders Orders - MAL PAZ Procedure Category Date Status Time Hydrocodone-Acet PHA 01/03/25 In Process 5/325mg Tab ([place] 16:15 Dietary Evaluation Review Comments: CCHO-60 Cardiac Diet with Ace for wound healing and Glucerna BID 240ml PO supplements Expected Outcomes/Goals: Promote wound healing process Date of Service: Jan 04, 2025 Billing Provider: SHANELL GUZMAN MD Common Visit Codes: [id number] INP/OBS CARE(HIGH) MAL PAZ RESIDENT Jan 04, 2025 16:04 SHANELL GUZMAN MD Jan 05, 2025 00:19
[2025-01-04 16:50] VITALS: BP 125/69; PULSE 73; RESP 18; TEMP 98.1; O2SAT 98
[2025-01-04 21:00] VITALS: BP 106/59; PULSE 76; RESP 17; TEMP 97.4; O2SAT 95
[2025-01-04] MEDS: HYDROcodone-ACET 5/325MG TAB PO PRN (22:29)
[2025-01-05] VITALS (8 sets, daily range): BP systolic 91–142; BP diastolic 40–80; PULSE 55–77; RESP 16–20; TEMP 97.5–98.6; O2SAT 95–100
[2025-01-05 11:20] LABS: Hematocrit 32.4 % (36.0-46.0); Hemoglobin 10.9 g/dL (12.2-16.2); Mean Corpuscular Hemoglobin 30.5 pg (28.0-32.0); Mean Corpuscular Volume 91.1 fL (80.0-100.0); Nucleated Red Blood Cells % 0.0 %
[2025-01-05 11:40] LABS: Alanine Aminotransferase 24 U/L (7-40); Albumin 3.2 g/dL (3.2-4.8); Alkaline Phosphatase 92 U/L (46-116); Anion Gap 7 (5-15); BUN/Creatinine Ratio 23.8 (10.0-20.0); Blood Urea Nitrogen 20 mg/dL (9-23); Carbon Dioxide 29 mmol/L (20-31); Chloride 103 mmol/L (98-107); Potassium 4.1 mmol/L (3.5-5.1); Sodium 139 mmol/L (136-145)
[2025-01-05 11:42] LABS: Bilirubin, Total 0.3 mg/dL (0.2-1.0); Calcium 8.2 mg/dL (8.7-10.4); Glucose 164 mg/dL (74-106); Total Protein 5.6 g/dL (5.7-8.2)
[2025-01-05] MEDS: LACTULOSE 20Gm/30ML SOLN PO ONE (11:45)
--- NOTE | 2025-01-05 16:54 | DVHPNRES ---
Progress Note Date Seen: Jan 05, 2025 Resident Creating Document: CHARBEL PARKER Medical Necessity Reason Pt with a Central, PICC or Fol: Yes The following are medically ne: Rodas Catheter Subjective Review of Systems Patient is a 69-year-old bed-bound female with past medical history of type 1 diabetes, multiple strokes, hypertension, hyperlipidemia, mild dementia, and hypothyroidism, presented to [facility] ED with complaint of failure to thrive. History was taken from both the patient and her son Mark Anthony. 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 She was heard yelling for help by her neighbors who contacted 911, and was subsequently brought to the emergency department. The patient reports that her , who had been her primary caregiver, three days ago. Since his passing, she states she has not eaten or drunk anything. Initial labs show WBCs 13.8 with neutrophilia, hypernatremia, creatinine 1.09, creatinine kinase 1187, and TSH 19.62. UA is significant for UTI. Chest x-ray shows no acute disease. The patient was started on IV fluids and IV antibiotics. Ultrasound soft tissue head and neck shows 3 x 2 x 4 cm right submandibular mass. The patient was seen and examined at bedside. Overnight events were reviewed. The patient reports having pain in the ulcer site at the back and buttocks. She reports tolerating the food well. No other new complaints reported Objective vital signs Vital Sign Date Time Temp Pulse Resp B/P (MAP) Pulse Ox O2 Delivery O2 Flow Rate FiO2 01/05/25 08:40 98.4 67 20 91/40 (57) 97 98.4 01/05/25 07:30 Room Air* 0 21 Total Intake and Output 01/04/25 01/04/25 01/05/25 15:00 23:00 07:00 Intake Total 50 ml Balance 50 ml medications Current Medications Medications Dose Ordered Sig/Lillie Route Start Time Stop Time Status Last Admin Dose Admin Diagnostic Test (Pha) 1 strip ACHS 01/02/25 07:00 01/05/25 11:42 1 STRIP Insulin Human Regular ACHS SC 01/02/25 07:00 01/05/25 11:42 2 UNITS Dextrose 50 ml UD PRN IV 01/02/25 02:45 Lisinopril 10 mg DAILY PO 01/02/25 10:00 01/05/25 08:19 10 MG Atorvastatin Calcium 20 mg HS PO 01/02/25 22:00 01/04/25 20:57 20 MG Ceftriaxone Sodium 50 ml @ 100 mls/hr DAILY@09 IV 01/02/25 09:00 01/05/25 08:08 100 MLS/HR Clotrimazole 1 applic Q12HR TOP 01/02/25 10:00 01/05/25 08:20 1 APPLIC Levothyroxine Sodium 50 mcg QAM@0600 PO 01/03/25 06:00 01/05/25 06:04 50 MCG Enteral Nutritional Formula 240 ml BIDWM PO 01/03/25 18:00 01/05/25 08:07 240 ML Acetaminophen/ Hydrocodone Bitart 1 tab Q6HPRN PRN PO 01/03/25 16:15 01/04/25 22:29 1 TAB Examination Examination General: Patient is AOx2, follows commands HEENT: Normocephalic, atraumatic, normal reactive pupils, EOM intact, pink conjunctiva, pink dry mucous membrane, poor dentition, presence of large circular mass that is nontender to the touch and is mobile Respiratory/pulmonary: Bilateral chest expansion, no pain on palpation of chest wall, clear lungs bilaterally, vesicular murmurs present in almost all lung hsaffer, no associated crackles or wheezes. Cardiovascular: Normal RRR, normal S1 and S2, no murmurs Abdomen: Abdomen nondistended, normal bowel sounds, soft, there is no pain to palpation in any of the abdominal quadrants, no palpable masses : Entire perineum and area including mons pubis has presence of bright red beefy rash that is painful to the touch, presence of Rodas catheter Extremities: No deformities, there is no peripheral edema present at the lower extremities, normal pulses Skin: Presence of sacral edema with minor breakdown of skin (decubitus sacral ulcer stage I present on admission) Neurological: Intact cranial nerves with no focal neurologic deficits, study limited due to patient's underlying disorientation laboratory and microbiology Laboratory Tests 01/05/25 09:46 Test 01/05/25 09:46 Range/Units Serum Glucose 164 H 74-106 mg/dL Microbiology Date/Time Source Procedure Growth Status 01/02/25 03:35 Voided Urine Urine Culture - Final Escherichia coli Complete 01/02/25 02:09 Blood Blood Culture - Preliminary NO GROWTH AFTER 72 HOURS OF INCUBATION. Resulted Problem List/Assessment/Plan Problem List/Assessment/Plan Dehydration - IV fluids Rhabdomyolysis likely due to above, Creatine Kinase 1187 > 1190 > 840 > 706 downtrending - NS 1000 cc bolus once - NS 500 bolus once - NS maintenance 100 cc/hr - Monitor CK and renal function PAVAN on CKD likely due to VMN/hemodynamically mediated - Monitor renal function - Avoid nephrotoxic drugs Acute Cystitis with microscopic hematuria - Ceftriaxone Sodium 50 ml IV daily - Urine Bacterial Culture Preliminary >100,000 CFU/mL Gram Negative Rods E scherichia coli Constipation Lactulose Sacral Decubitus Ulcer, possibly stage 1 POA - Wound culture - Wound care consult has been ordered - Vancomycin per pharmacy protocol Cutaneous Candidiasis - Clotrimazole 1 application q 12 hours Type 1 Diabetes Mellitus with hyperglycemia, HbA1c 7.1 - Mild SSI - Accu-chek Hypothyroidism, TSH 16.99 ? Lymphoma - ULTRASOUND SOFT TISSUE HEAD AND NECK: 3 x 2 x 4 cm right submandibular mass. - FT4 and Total T3 pending - Levothyroxine 50 mcg PO daily Hypertension - Lisinopril 10 mg OI daily Hyperlipidemia - Atorvastatin 20 mg PO HS Mild Dementia History of Multiple Strokes, patient is bed-bound - q2 turns to avoid pressure ulcers Diet: Soft DVT prophylaxis: Enoxaparin 70 mg GI prophylaxis: Not indicated Goals of care: Full code, discussed for >16 minutes on 01/04/25 Plan discussed with patient Plan discussed with Dr. Guzman Plan discussed with: Patient, Other (RN) Dietary Evaluation Review Comments: CCHO-60 Cardiac Diet with Ace for wound healing and Glucerna BID 240ml PO supplements Expected Outcomes/Goals: Promote wound healing process Date of Service: Jan 05, 2025 Billing Provider: SHANELL GUZMAN MD Common Visit Codes: [id number] INP/OBS CARE(HIGH) CHARBEL PARKER RESIDENT Jan 05, 2025 16:54 SHANELL GUZMAN MD Jan 05, 2025 23:20
[2025-01-06] VITALS (8 sets, daily range): BP systolic 97–139; BP diastolic 59–80; PULSE 63–92; RESP 16–20; TEMP 98–99.8; O2SAT 94–100
[2025-01-06 05:56] LABS: Hematocrit 29.7 % (36.0-46.0); Hemoglobin 10.2 g/dL (12.2-16.2); Mean Corpuscular Hemoglobin 31.1 pg (28.0-32.0); Mean Corpuscular Volume 90.5 fL (80.0-100.0); Nucleated Red Blood Cells % 0.0 %
[2025-01-06 06:06] LABS: Anion Gap 6 (5-15); Carbon Dioxide 29 mmol/L (20-31); Chloride 103 mmol/L (98-107); Potassium 4.2 mmol/L (3.5-5.1); Sodium 138 mmol/L (136-145)
[2025-01-06 06:13] LABS: BUN/Creatinine Ratio 23.8 (10.0-20.0); Blood Urea Nitrogen 20 mg/dL (9-23)
[2025-01-06 06:22] LABS: Calcium 8.0 mg/dL (8.7-10.4); Glucose 147 mg/dL (74-106)
--- NOTE | 2025-01-06 16:00 | DVHPNRES ---
Progress Note Date Seen: Jan 06, 2025 Resident Creating Document: MAL PAZ Medical Necessity Reason Pt with a Central, PICC or Fol: Yes The following are medically ne: Rodas Catheter Subjective Review of Systems Patient is a 69-year-old bed-bound female with past medical history of type 1 diabetes, multiple strokes, hypertension, hyperlipidemia, mild dementia, and hypothyroidism, presented to [facility] ED with complaint of failure to thrive. History was taken from both the patient and her son Mark Anthony. 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 She was heard yelling for help by her neighbors who contacted 911, and was subsequently brought to the emergency department. The patient reports that her , who had been her primary caregiver, three days ago. Since his passing, she states she has not eaten or drunk anything. Initial labs show WBCs 13.8 with neutrophilia, hypernatremia, creatinine 1.09, creatinine kinase 1187, and TSH 19.62. UA is significant for UTI. Chest x-ray shows no acute disease. The patient was started on IV fluids and IV antibiotics. Ultrasound soft tissue head and neck shows 3 x 2 x 4 cm right submandibular mass. The patient was seen and examined at bedside. Overnight events were reviewed. The patient reports having pain in the ulcer site at the back and buttocks. She reports tolerating the food well. No other new complaints reported Patient was seen and examined at bedside. Overnight events were reviewed. The patient reports feeling better. Social work re-assessment was conducted regarding discharge planning. Spoke with patients son, Mark Anthony ([phone]), who is in agreement with transitioning the patient to hospice care. He requested [facility] and was informed that hospice services are covered by insurance. Objective vital signs Vital Sign Date Time Temp Pulse Resp B/P (MAP) Pulse Ox O2 Delivery O2 Flow Rate FiO2 01/06/25 13:00 98.6 73 20 107/80 (89) 97 98.6 01/06/25 07:43 Room Air* 0 21 Total Intake and Output 01/05/25 01/05/25 01/06/25 15:00 23:00 07:00 Intake Total 50 ml 800 ml Output Total 600 ml Balance 50 ml 200 ml medications Current Medications Medications Dose Ordered Sig/Lillie Route Start Time Stop Time Status Last Admin Dose Admin Diagnostic Test (Pha) 1 strip ACHS 01/02/25 07:00 01/06/25 11:30 1 STRIP Insulin Human Regular ACHS SC 01/02/25 07:00 01/06/25 12:12 2 UNITS Dextrose 50 ml UD PRN IV 01/02/25 02:45 Atorvastatin Calcium 20 mg HS PO 01/02/25 22:00 01/05/25 22:11 20 MG Ceftriaxone Sodium 50 ml @ 100 mls/hr DAILY@09 IV 01/02/25 09:00 01/06/25 08:35 100 MLS/HR Clotrimazole 1 applic Q12HR TOP 01/02/25 10:00 01/06/25 08:35 1 APPLIC Levothyroxine Sodium 50 mcg QAM@0600 PO 01/03/25 06:00 01/06/25 06:00 50 MCG Enteral Nutritional Formula 240 ml BIDWM PO 01/03/25 18:00 01/06/25 08:34 240 ML Acetaminophen/ Hydrocodone Bitart 1 tab Q6HPRN PRN PO 01/03/25 16:15 01/05/25 16:59 1 TAB Lisinopril 5 mg DAILY PO 01/07/25 10:00 Examination General: Patient is AOx2, follows commands HEENT: Normocephalic, atraumatic, normal reactive pupils, EOM intact, pink conjunctiva, pink dry mucous membrane, poor dentition, presence of large circular mass that is nontender to the touch and is mobile Respiratory/pulmonary: Bilateral chest expansion, no pain on palpation of chest wall, clear lungs bilaterally, vesicular murmurs present in almost all lung shaffer, no associated crackles or wheezes. Cardiovascular: Normal RRR, normal S1 and S2, no murmurs Abdomen: Abdomen nondistended, normal bowel sounds, soft, there is no pain to palpation in any of the abdominal quadrants, no palpable masses : Entire perineum and area including mons pubis has presence of bright red beefy rash that is painful to the touch, presence of Rodas catheter Extremities: No deformities, there is no peripheral edema present at the lower extremities, normal pulses Skin: Presence of sacral edema with minor breakdown of skin (decubitus sacral ulcer stage I present on admission) Neurological: Intact cranial nerves with no focal neurologic deficits, study limited due to patient's underlying disorientation laboratory and microbiology Laboratory Tests 01/06/25 05:32 Test 01/06/25 05:32 Range/Units Serum Glucose 147 H 74-106 mg/dL Microbiology Date/Time Source Procedure Growth Status 01/02/25 03:35 Voided Urine Urine Culture - Final Escherichia coli Complete 01/02/25 02:09 Blood Blood Culture - Preliminary NO GROWTH AFTER 72 HOURS OF INCUBATION. Resulted Labs and/or images reviewed: Labs reviewed by me, Image(s) reviewed by me Problem List/Assessment/Plan Problem List/Assessment/Plan Assessment and Plan: Dehydration - IV fluids Rhabdomyolysis likely due to above, Creatine Kinase 1187 > 1190 > 840 > 706 downtrending - NS 1000 cc bolus once - NS 500 bolus once - NS maintenance 100 cc/hr - Monitor CK and renal function PAVAN on CKD likely due to VMN/hemodynamically mediated - Monitor renal function - Avoid nephrotoxic drugs Acute Cystitis with microscopic hematuria - Ceftriaxone Sodium 50 ml IV daily - Urine Bacterial Culture Preliminary >100,000 CFU/mL Gram Negative Rods E scherichia coli Sacral Decubitus Ulcer, possibly stage 1 POA - Wound culture has been ordered - Wound care consult has been ordered - Vancomycin per pharmacy protocol Cutaneous Candidiasis - Clotrimazole 1 application q 12 hours Type 1 Diabetes Mellitus with hyperglycemia, HbA1c 7.1 - Mild SSI - Accu-chek Hypothyroidism, TSH 16.99 ? Limpoma - ULTRASOUND SOFT TISSUE HEAD AND NECK: 3 x 2 x 4 cm right submandibular mass. - FT4 and Total T3 pending - Levothyroxine 50 mcg PO daily Hypertension - Lisinopril 10 mg OI daily Hyperlipidemia - Atorvastatin 20 mg PO HS Mild Dementia History of Multiple Strokes, patient is bed-bound - q2 turns to avoid pressure ulcers Diet: Soft DVT prophylaxis: Enoxaparin 70 mg GI prophylaxis: Not indicated Goals of care: Full code, discussed for >16 minutes on 01/06/25 Plan discussed with patient Plan discussed with Dr. Guzman Plan discussed with: Son, Other (RN) My Orders My Orders Orders - MAL PAZ Procedure Category Date Status Time Initiate Vte DAVID 01/05/25 In Process Prophylaxis 23:16 Dietary Evaluation Review Comments: CCHO-60 Cardiac Diet with Ace for wound healing and Glucerna BID 240ml PO supplements Expected Outcomes/Goals: Promote wound healing process Date of Service: Jan 06, 2025 Billing Provider: SHANELL GUZMAN MD Common Visit Codes: [id number] INP/OBS CARE(HIGH) MAL PAZ RESIDENT Jan 06, 2025 15:59 SHANELL GUZMAN MD Jan 06, 2025 23:01
[2025-01-07] VITALS (8 sets, daily range): BP systolic 91–99; BP diastolic 47–63; PULSE 64–94; RESP 17–20; TEMP 97.7–100; O2SAT 93–99
[2025-01-07 06:07] LABS: Hematocrit 29.4 % (36.0-46.0); Hemoglobin 10.1 g/dL (12.2-16.2); Mean Corpuscular Hemoglobin 31.3 pg (28.0-32.0); Mean Corpuscular Volume 90.9 fL (80.0-100.0); Nucleated Red Blood Cells % 0.0 %
[2025-01-07 06:21] LABS: Alanine Aminotransferase 24 U/L (7-40); Albumin 3.0 g/dL (3.2-4.8); Alkaline Phosphatase 79 U/L (46-116); Anion Gap 8 (5-15); BUN/Creatinine Ratio 21.5 (10.0-20.0); Blood Urea Nitrogen 17 mg/dL (9-23); Calcium 8.2 mg/dL (8.7-10.4); Carbon Dioxide 27 mmol/L (20-31); Chloride 104 mmol/L (98-107); Glucose 144 mg/dL (74-106); Potassium 4.0 mmol/L (3.5-5.1); Sodium 139 mmol/L (136-145); Total Protein 5.2 g/dL (5.7-8.2)
[2025-01-07 06:23] LABS: Bilirubin, Total 0.3 mg/dL (0.2-1.0)
[2025-01-07] MEDS: LISINOPRIL 5 MG TAB PO SCH (08:47)
--- NOTE | 2025-01-07 16:02 | DVHPNRES ---
Progress Note Date Seen: Jan 07, 2025 Resident Creating Document: MAL PAZ Medical Necessity Reason Pt with a Central, PICC or Fol: Yes The following are medically ne: Rodas Catheter Subjective Review of Systems Patient is a 69-year-old bed-bound female with past medical history of type 1 diabetes, multiple strokes, hypertension, hyperlipidemia, mild dementia, and hypothyroidism, presented to [facility] ED with complaint of failure to thrive. History was taken from both the patient and her son Mark Anthony. 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 She was heard yelling for help by her neighbors who contacted 911, and was subsequently brought to the emergency department. The patient reports that her , who had been her primary caregiver, three days ago. Since his passing, she states she has not eaten or drunk anything. Initial labs show WBCs 13.8 with neutrophilia, hypernatremia, creatinine 1.09, creatinine kinase 1187, and TSH 19.62. UA is significant for UTI. Chest x-ray shows no acute disease. The patient was started on IV fluids and IV antibiotics. Ultrasound soft tissue head and neck shows 3 x 2 x 4 cm right submandibular mass. The patient was seen and examined at bedside. Overnight events were reviewed. The patient reports having pain in the ulcer site at the back and buttocks. She reports tolerating the food well. No other new complaints reported Patient was seen and examined at bedside. Overnight events were reviewed. The patient reports feeling better. Social work re-assessment was conducted regarding discharge planning. Spoke with patients son, Mark Anthony ([phone]), who is in agreement with transitioning the patient to hospice care. He requested [facility] and was informed that hospice services are covered by insurance. 01/07: Patient was seen and examined at bedside. Overnight events were reviewed. The patient is tolerating a soft diet well. The patient is pending acceptance to a [facility]. Objective vital signs Vital Sign Date Time Temp Pulse Resp B/P (MAP) Pulse Ox O2 Delivery O2 Flow Rate FiO2 01/07/25 13:00 98.2 64 18 95/63 (74) 96 98.2 01/07/25 08:00 Room Air* 0 21 Total Intake and Output 01/06/25 01/06/25 01/07/25 15:00 23:00 07:00 Intake Total 600 ml 420 ml Output Total 1300 ml 3000 ml Balance -700 ml -2580 ml medications Current Medications Medications Dose Ordered Sig/Lillie Route Start Time Stop Time Status Last Admin Dose Admin Diagnostic Test (Pha) 1 strip ACHS 01/02/25 07:00 01/07/25 11:34 1 STRIP Insulin Human Regular ACHS SC 01/02/25 07:00 01/07/25 11:35 3 UNITS Dextrose 50 ml UD PRN IV 01/02/25 02:45 Atorvastatin Calcium 20 mg HS PO 01/02/25 22:00 01/06/25 21:22 20 MG Ceftriaxone Sodium 50 ml @ 100 mls/hr DAILY@09 IV 01/02/25 09:00 01/07/25 08:46 100 MLS/HR Clotrimazole 1 applic Q12HR TOP 01/02/25 10:00 01/07/25 08:47 1 APPLIC Levothyroxine Sodium 50 mcg QAM@0600 PO 01/03/25 06:00 01/07/25 05:31 50 MCG Enteral Nutritional Formula 240 ml BIDWM PO 01/03/25 18:00 01/07/25 08:00 240 ML Acetaminophen/ Hydrocodone Bitart 1 tab Q6HPRN PRN PO 01/03/25 16:15 01/07/25 11:34 1 TAB Lisinopril 5 mg DAILY PO 01/07/25 10:00 01/07/25 08:47 5 MG Examination General: Patient is AOx2, follows commands HEENT: Normocephalic, atraumatic, normal reactive pupils, EOM intact, pink conjunctiva, pink dry mucous membrane, poor dentition, presence of large circular mass that is nontender to the touch and is mobile Respiratory/pulmonary: Bilateral chest expansion, no pain on palpation of chest wall, clear lungs bilaterally, vesicular murmurs present in almost all lung shaffer, no associated crackles or wheezes. Cardiovascular: Normal RRR, normal S1 and S2, no murmurs Abdomen: Abdomen nondistended, normal bowel sounds, soft, there is no pain to palpation in any of the abdominal quadrants, no palpable masses : Entire perineum and area including mons pubis has presence of bright red beefy rash that is painful to the touch, presence of Rodas catheter Extremities: No deformities, there is no peripheral edema present at the lower extremities, normal pulses Skin: Presence of sacral edema with minor breakdown of skin (decubitus sacral ulcer stage I present on admission) Neurological: Intact cranial nerves with no focal neurologic deficits, study limited due to patient's underlying disorientation laboratory and microbiology Laboratory Tests 01/07/25 05:13 Test 01/07/25 05:13 Range/Units Serum Glucose 144 H 74-106 mg/dL Microbiology Date/Time Source Procedure Growth Status 01/02/25 03:35 Voided Urine Urine Culture - Final Escherichia coli Complete 01/02/25 02:09 Blood Blood Culture - Final NO GROWTH AFTER 5 DAYS OF INCUBATION. Complete Labs and/or images reviewed: Labs reviewed by me, Image(s) reviewed by me Problem List/Assessment/Plan Problem List/Assessment/Plan Assessment and Plan: Dehydration - IV fluids Rhabdomyolysis likely due to above, Creatine Kinase 1187 > 1190 > 840 > 706 downtrending - NS 1000 cc bolus once - NS 500 bolus once - NS maintenance 100 cc/hr - Monitor CK and renal function PAVAN on CKD likely due to VMN/hemodynamically mediated - Monitor renal function - Avoid nephrotoxic drugs Acute Cystitis with microscopic hematuria - Ceftriaxone Sodium 50 ml IV daily - Urine Bacterial Culture Preliminary >100,000 CFU/mL Gram Negative Rods E scherichia coli Sacral Decubitus Ulcer, possibly stage 1 POA - Wound culture has been ordered - Wound care consult has been ordered - Vancomycin per pharmacy protocol Cutaneous Candidiasis - Clotrimazole 1 application q 12 hours Type 1 Diabetes Mellitus with hyperglycemia, HbA1c 7.1 - Mild SSI - Accu-chek Hypothyroidism, TSH 16.99 ? Limpoma - ULTRASOUND SOFT TISSUE HEAD AND NECK: 3 x 2 x 4 cm right submandibular mass. - FT4 and Total T3 pending - Levothyroxine 50 mcg PO daily Hypertension - Lisinopril 10 mg OI daily Hyperlipidemia - Atorvastatin 20 mg PO HS Mild Dementia History of Multiple Strokes, patient is bed-bound - q2 turns to avoid pressure ulcers Diet: Soft DVT prophylaxis: Enoxaparin 70 mg GI prophylaxis: Not indicated Goals of care: Full code, discussed for >16 minutes on 01/07/25 Plan discussed with patient Plan discussed with Dr. Guzman Plan discussed with: Son Dietary Evaluation Review Comments: CCHO-60 Cardiac Diet with Ace for wound healing and Glucerna BID 240ml PO supplements Expected Outcomes/Goals: Promote wound healing process Date of Service: Jan 07, 2025 Billing Provider: SHANELL GUZMAN MD Common Visit Codes: [id number] INP/OBS CARE(HIGH) MAL PAZ RESIDENT Jan 07, 2025 16:02 SHANELL GUZMAN MD Jan 08, 2025 06:46
[2025-01-08] VITALS (8 sets, daily range): BP systolic 90–149; BP diastolic 53–84; PULSE 62–97; RESP 16–18; TEMP 97.7–98.6; O2SAT 96–99
[2025-01-08 10:06] LABS: Hematocrit 29.8 % (36.0-46.0); Hemoglobin 9.9 g/dL (12.2-16.2); Mean Corpuscular Hemoglobin 30.5 pg (28.0-32.0); Mean Corpuscular Volume 91.8 fL (80.0-100.0); Nucleated Red Blood Cells % 0.0 %
[2025-01-08 10:15] LABS: Chloride 101 mmol/L (98-107); Potassium 4.5 mmol/L (3.5-5.1); Sodium 137 mmol/L (136-145)
[2025-01-08 10:16] LABS: Anion Gap 7 (5-15); Carbon Dioxide 29 mmol/L (20-31)
[2025-01-08 10:19] LABS: Calcium 8.0 mg/dL (8.7-10.4)
[2025-01-08 10:21] LABS: BUN/Creatinine Ratio 27.6 (10.0-20.0)
[2025-01-08 10:24] LABS: Blood Urea Nitrogen 24 mg/dL (9-23); Glucose 179 mg/dL (74-106)
--- NOTE | 2025-01-08 13:51 | ECG ---
[facility] Test Date: 2025-01-01 Test Time: 19:30:14 Pat Name: NENA ADKINS Department[facility] Patient [facility]: [id number] Room: 0276 B Gender: F Boat Garnisher: MIKE : 1955 Requested By: EMERGENCY EMERGENCY Order Number: [id number] Reading MD: Christopher Alcantar Measurements Intervals Barnard Rate: 107 P: 0 UT: 38 QRS: -48 QRSD: 147 T: 43 QT: 413 QTc: 551 Interpretive Statements Sinus tachycardia Paired ventricular premature complexes Short UT interval Right atrial enlargement IVCD, consider atypical RBBB Left ventricular hypertrophy Inferior infarct, old Anterior infarct, old Lateral leads are also involved Artifact in lead(s) I,II,III,aVR,aVL,aVF,V1,V2,V3,V4,V5,V6 and baseline wander in lead(s) II Electronically Signed On 01-11-2025 18:32:18 PDT by Christopher Alcantar Please click the below link to view image of tracing.
--- NOTE | 2025-01-08 17:44 | DVHPNRES ---
Progress Note Date Seen: Jan 08, 2025 Resident Creating Document: MAL PAZ Medical Necessity Reason Pt with a Central, PICC or Fol: Yes The following are medically ne: Rodas Catheter Subjective Review of Systems Patient is a 69-year-old bed-bound female with past medical history of type 1 diabetes, multiple strokes, hypertension, hyperlipidemia, mild dementia, and hypothyroidism, presented to [facility] ED with complaint of failure to thrive. History was taken from both the patient and her son Mark Anthony. 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 She was heard yelling for help by her neighbors who contacted 911, and was subsequently brought to the emergency department. The patient reports that her , who had been her primary caregiver, three days ago. Since his passing, she states she has not eaten or drunk anything. Initial labs show WBCs 13.8 with neutrophilia, hypernatremia, creatinine 1.09, creatinine kinase 1187, and TSH 19.62. UA is significant for UTI. Chest x-ray shows no acute disease. The patient was started on IV fluids and IV antibiotics. Ultrasound soft tissue head and neck shows 3 x 2 x 4 cm right submandibular mass. The patient was seen and examined at bedside. Overnight events were reviewed. The patient reports having pain in the ulcer site at the back and buttocks. She reports tolerating the food well. No other new complaints reported Patient was seen and examined at bedside. Overnight events were reviewed. The patient reports feeling better. Social work re-assessment was conducted regarding discharge planning. Spoke with patients son, Mark Anthony ([phone]), who is in agreement with transitioning the patient to hospice care. He requested [facility] and was informed that hospice services are covered by insurance. 01/07: Patient was seen and examined at bedside. Overnight events were reviewed. The patient is tolerating a soft diet well. The patient is pending [facility] to a [facility]. 01/08: Patient was seen and examined at bedside. Overnight events were reviewed. The patient is tolerating a soft diet well. The patient is not appropriate for [facility] at this time. Patient is stable and in no apparent distress. Rodas catheter remains intact and patent. Objective vital signs Vital Sign Date Time Temp Pulse Resp B/P (MAP) Pulse Ox O2 Delivery O2 Flow Rate FiO2 01/08/25 16:24 97.8 66 18 110/66 (81) 96 97.8 01/08/25 08:00 Room Air* 0 21 Total Intake and Output 01/07/25 01/07/25 01/08/25 15:00 23:00 07:00 Intake Total 50 ml 1240 ml 300 ml Output Total 900 ml 1250 ml Balance 50 ml 340 ml -950 ml medications Current Medications Medications Dose Ordered Sig/Lillie Route Start Time Stop Time Status Last Admin Dose Admin Diagnostic Test (Pha) 1 strip ACHS 01/02/25 07:00 01/08/25 17:27 1 STRIP Insulin Human Regular ACHS SC 01/02/25 07:00 01/08/25 17:32 3 UNITS Dextrose 50 ml UD PRN IV 01/02/25 02:45 Atorvastatin Calcium 20 mg HS PO 01/02/25 22:00 01/07/25 22:09 20 MG Ceftriaxone Sodium 50 ml @ 100 mls/hr DAILY@09 IV 01/02/25 09:00 01/08/25 09:44 100 MLS/HR Clotrimazole 1 applic Q12HR TOP 01/02/25 10:00 01/08/25 10:00 1 APPLIC Levothyroxine Sodium 50 mcg QAM@0600 PO 01/03/25 06:00 01/08/25 06:07 50 MCG Enteral Nutritional Formula 240 ml BIDWM PO 01/03/25 18:00 01/08/25 08:00 240 ML Acetaminophen/ Hydrocodone Bitart 1 tab Q6HPRN PRN PO 01/03/25 16:15 01/08/25 17:29 1 TAB Lisinopril 5 mg DAILY PO 01/07/25 10:00 01/08/25 09:46 5 MG Insulin Glargine 10 units HS SC 01/08/25 22:00 Examination General: Patient is AOx2, follows commands HEENT: Normocephalic, atraumatic, normal reactive pupils, EOM intact, pink conjunctiva, pink dry mucous membrane, poor dentition, presence of large circular mass that is nontender to the touch and is mobile Respiratory/pulmonary: Bilateral chest expansion, no pain on palpation of chest wall, clear lungs bilaterally, vesicular murmurs present in almost all lung shaffer, no associated crackles or wheezes. Cardiovascular: Normal RRR, normal S1 and S2, no murmurs Abdomen: Abdomen nondistended, normal bowel sounds, soft, there is no pain to palpation in any of the abdominal quadrants, no palpable masses : Entire perineum and area including mons pubis has presence of bright red beefy rash that is painful to the touch, presence of Rodas catheter Extremities: No deformities, there is no peripheral edema present at the lower extremities, normal pulses Skin: Presence of sacral edema with minor breakdown of skin (decubitus sacral ulcer stage I present on admission) Neurological: Intact cranial nerves with no focal neurologic deficits, study limited due to patient's underlying disorientation laboratory and microbiology Laboratory Tests 01/08/25 09:25 Test 01/08/25 09:25 Range/Units Serum Glucose 179 H 74-106 mg/dL Microbiology Date/Time Source Procedure Growth Status 01/02/25 03:35 Voided Urine Urine Culture - Final Escherichia coli Complete 01/02/25 02:09 Blood Blood Culture - Final NO GROWTH AFTER 5 DAYS OF INCUBATION. Complete Labs and/or images reviewed: Labs reviewed by me, Image(s) reviewed by me Problem List/Assessment/Plan Problem List/Assessment/Plan Assessment and Plan: Dehydration - IV fluids Rhabdomyolysis likely due to above, Creatine Kinase 1187 > 1190 > 840 > 706 downtrending - NS 1000 cc bolus once - NS 500 bolus once - NS maintenance 100 cc/hr - Monitor CK and renal function PAAVN on CKD likely due to VMN/hemodynamically mediated - Monitor renal function - Avoid nephrotoxic drugs Acute Cystitis with microscopic hematuria - Ceftriaxone Sodium 50 ml IV daily - Urine Bacterial Culture Preliminary >100,000 CFU/mL Gram Negative Rods E scherichia coli Sacral Decubitus Ulcer, possibly stage 1 POA - Wound culture has been ordered - Wound care consult has been ordered - Vancomycin per pharmacy protocol Cutaneous Candidiasis - Clotrimazole 1 application q 12 hours Type 1 Diabetes Mellitus with hyperglycemia, HbA1c 7.1 - Mild SSI - Accu-chek Hypothyroidism, TSH 16.99 ? Limpoma - ULTRASOUND SOFT TISSUE HEAD AND NECK: 3 x 2 x 4 cm right submandibular mass. - FT4 and Total T3 pending - Levothyroxine 50 mcg PO daily Hypertension - Lisinopril 10 mg OI daily Hyperlipidemia - Atorvastatin 20 mg PO HS Mild Dementia History of Multiple Strokes, patient is bed-bound - q2 turns to avoid pressure ulcers Diet: Soft DVT prophylaxis: Enoxaparin 70 mg GI prophylaxis: Not indicated Goals of care: Full code, discussed for >16 minutes on 01/08/25 Plan discussed with patient Plan discussed with Dr. Guzman Plan discussed with: Son, Other (RN) Dietary Evaluation Review Comments: CCHO-60 Cardiac Diet with Ace for wound healing and Glucerna BID 240ml PO supplements Expected Outcomes/Goals: Promote wound healing process Date of Service: Jan 08, 2025 Billing Provider: SHANELL GUZMAN MD Common Visit Codes: [id number] INP/OBS CARE(HIGH) MAL PAZ RESIDENT Jan 08, 2025 17:44 SHANELL GUZMAN MD Jan 08, 2025 23:07
[2025-01-08] MEDS: INSULIN LANTUS (GLARGINE) 1 /0.01ml (100units/ml) SC SCH (23:19)
[2025-01-09] VITALS (8 sets, daily range): BP systolic 106–188; BP diastolic 55–95; PULSE 61–85; RESP 16–19; TEMP 96.8–98.7; O2SAT 92–98
[2025-01-09 06:30] LABS: Anion Gap 6 (5-15); Chloride 102 mmol/L (98-107); Potassium 4.8 mmol/L (3.5-5.1); Sodium 140 mmol/L (136-145)
[2025-01-09 06:36] LABS: BUN/Creatinine Ratio 22.4 (10.0-20.0); Blood Urea Nitrogen 17 mg/dL (9-23); Calcium 8.6 mg/dL (8.7-10.4); Carbon Dioxide 32 mmol/L (20-31)
[2025-01-09 06:37] LABS: Glucose 108 mg/dL (74-106)
[2025-01-09 06:48] LABS: Hematocrit 30.2 % (36.0-46.0); Hemoglobin 10.4 g/dL (12.2-16.2); Mean Corpuscular Hemoglobin 31.1 pg (28.0-32.0); Mean Corpuscular Volume 90.8 fL (80.0-100.0); Nucleated Red Blood Cells % 0.0 %
--- NOTE | 2025-01-09 17:32 | DVHPNRES ---
Progress Note Date Seen: Jan 09, 2025 Resident Creating Document: MAL PAZ Medical Necessity Reason Pt with a Central, PICC or Fol: No The following are medically ne: Rodas Catheter Subjective Review of Systems Patient is a 69-year-old bed-bound female with past medical history of type 1 diabetes, multiple strokes, hypertension, hyperlipidemia, mild dementia, and hypothyroidism, presented to [facility] ED with complaint of failure to thrive. History was taken from both the patient and her son Mark Anthony. 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 She was heard yelling for help by her neighbors who contacted 911, and was subsequently brought to the emergency department. The patient reports that her , who had been her primary caregiver, three days ago. Since his passing, she states she has not eaten or drunk anything. Initial labs show WBCs 13.8 with neutrophilia, hypernatremia, creatinine 1.09, creatinine kinase 1187, and TSH 19.62. UA is significant for UTI. Chest x-ray shows no acute disease. The patient was started on IV fluids and IV antibiotics. Ultrasound soft tissue head and neck shows 3 x 2 x 4 cm right submandibular mass. The patient was seen and examined at bedside. Overnight events were reviewed. The patient reports having pain in the ulcer site at the back and buttocks. She reports tolerating the food well. No other new complaints reported Patient was seen and examined at bedside. Overnight events were reviewed. The patient reports feeling better. Social work re-assessment was conducted regarding discharge planning. Spoke with patients son, Mark Anthony ([phone]), who is in agreement with transitioning the patient to hospice care. He requested [facility] and was informed that hospice services are covered by insurance. 01/07: Patient was seen and examined at bedside. Overnight events were reviewed. The patient is tolerating a soft diet well. The patient is pending [facility] to a [facility]. 01/08: Patient was seen and examined at bedside. Overnight events were reviewed. The patient is tolerating a soft diet well. The patient is not appropriate for [facility] at this time. Patient is stable and in no apparent distress. Rodas catheter remains intact and patent. 01/09: Patient was seen and examined at bedside. Overnight events were reviewed. No signs or symptoms of distress, shortness of breath, or pain reported or observed. Patient instructed on plan of care and to call for assistance as needed. Rodas catheter was discontinued. Objective vital signs Vital Sign Date Time Temp Pulse Resp B/P (MAP) Pulse Ox O2 Delivery O2 Flow Rate FiO2 01/09/25 16:53 98.4 66 16 128/67 (87) 98 98.4 01/09/25 08:00 Room Air* 0 21 Total Intake and Output 01/08/25 01/08/25 01/09/25 15:00 23:00 07:00 Intake Total 50 ml Balance 50 ml medications Current Medications Medications Dose Ordered Sig/Lillie Route Start Time Stop Time Status Last Admin Dose Admin Diagnostic Test (Pha) 1 strip ACHS 01/02/25 07:00 01/09/25 11:37 1 STRIP Insulin Human Regular ACHS SC 01/02/25 07:00 01/09/25 11:37 2 UNITS Dextrose 50 ml UD PRN IV 01/02/25 02:45 Atorvastatin Calcium 20 mg HS PO 01/02/25 22:00 01/08/25 23:01 20 MG Ceftriaxone Sodium 50 ml @ 100 mls/hr DAILY@09 IV 01/02/25 09:00 01/09/25 08:35 100 MLS/HR Clotrimazole 1 applic Q12HR TOP 01/02/25 10:00 01/09/25 08:36 1 APPLIC Levothyroxine Sodium 50 mcg QAM@0600 PO 01/03/25 06:00 01/09/25 06:18 50 MCG Enteral Nutritional Formula 240 ml BIDWM PO 01/03/25 18:00 01/09/25 08:00 240 ML Acetaminophen/ Hydrocodone Bitart 1 tab Q6HPRN PRN PO 01/03/25 16:15 01/08/25 17:29 1 TAB Lisinopril 5 mg DAILY PO 01/07/25 10:00 01/09/25 08:36 5 MG Examination General: Patient is AOx2, follows commands HEENT: Normocephalic, atraumatic, normal reactive pupils, EOM intact, pink conjunctiva, pink dry mucous membrane, poor dentition, presence of large circular mass that is nontender to the touch and is mobile Respiratory/pulmonary: Bilateral chest expansion, no pain on palpation of chest wall, clear lungs bilaterally, vesicular murmurs present in almost all lung shaffer, no associated crackles or wheezes. Cardiovascular: Normal RRR, normal S1 and S2, no murmurs Abdomen: Abdomen nondistended, normal bowel sounds, soft, there is no pain to palpation in any of the abdominal quadrants, no palpable masses : Entire perineum and area including mons pubis has presence of bright red beefy rash that is painful to the touch, presence of Rodas catheter Extremities: No deformities, there is no peripheral edema present at the lower extremities, normal pulses Skin: Presence of sacral edema with minor breakdown of skin (decubitus sacral ulcer stage I present on admission) Neurological: Intact cranial nerves with no focal neurologic deficits, study limited due to patient's underlying disorientation laboratory and microbiology Laboratory Tests 01/09/25 05:28 Test 01/09/25 05:28 Range/Units Serum Glucose 108 H 74-106 mg/dL Microbiology Date/Time Source Procedure Growth Status 01/02/25 03:35 Voided Urine Urine Culture - Final Escherichia coli Complete 01/02/25 02:09 Blood Blood Culture - Final NO GROWTH AFTER 5 DAYS OF INCUBATION. Complete Labs and/or images reviewed: Labs reviewed by me, Image(s) reviewed by me Problem List/Assessment/Plan Problem List/Assessment/Plan Assessment and Plan: Dehydration - IV fluids Rhabdomyolysis likely due to above, Creatine Kinase 1187 > 1190 > 840 > 706 downtrending - NS 1000 cc bolus once - NS 500 bolus once - NS maintenance 100 cc/hr - Monitor CK and renal function PAVAN on CKD likely due to VMN/hemodynamically mediated - Monitor renal function - Avoid nephrotoxic drugs Acute Cystitis with microscopic hematuria - Ceftriaxone Sodium 50 ml IV daily - Urine Bacterial Culture Preliminary >100,000 CFU/mL Gram Negative Rods E scherichia coli Sacral Decubitus Ulcer, possibly stage 1 POA - Wound culture has been ordered - Wound care consult has been ordered - Vancomycin per pharmacy protocol Cutaneous Candidiasis - Clotrimazole 1 application q 12 hours Type 1 Diabetes Mellitus with hyperglycemia, HbA1c 7.1 - Mild SSI - Accu-chek Hypothyroidism, TSH 16.99 ? Limpoma - ULTRASOUND SOFT TISSUE HEAD AND NECK: 3 x 2 x 4 cm right submandibular mass. - FT4 and Total T3 pending - Levothyroxine 50 mcg PO daily Hypertension - Lisinopril 10 mg OI daily Hyperlipidemia - Atorvastatin 20 mg PO HS Mild Dementia History of Multiple Strokes, patient is bed-bound - q2 turns to avoid pressure ulcers Diet: Soft DVT prophylaxis: Enoxaparin 70 mg GI prophylaxis: Not indicated Goals of care: Full code, discussed for >16 minutes on 01/09/25 Plan discussed with patient Plan discussed with Dr. Guzman Plan discussed with: Other (RN) Dietary Evaluation Review Comments: CCHO-60 Cardiac Diet with Ace for wound healing and Glucerna BID 240ml PO supplements Expected Outcomes/Goals: Promote wound healing process Date of Service: Jan 09, 2025 Billing Provider: SHANELL GUZMAN MD Common Visit Codes: [id number] INP/OBS CARE(HIGH) MAL PAZ RESIDENT Jan 09, 2025 17:32 SHANELL GUZMAN MD Jan 09, 2025 22:59
[2025-01-10] VITALS (7 sets, daily range): BP systolic 115–136; BP diastolic 58–76; PULSE 65–69; RESP 15–18; TEMP 97.6–98.9; O2SAT 98–99
[2025-01-10 07:44] LABS: Hematocrit 30.6 % (36.0-46.0); Hemoglobin 10.4 g/dL (12.2-16.2); Mean Corpuscular Hemoglobin 31.1 pg (28.0-32.0); Mean Corpuscular Volume 91.8 fL (80.0-100.0); Nucleated Red Blood Cells % 0.1 %
[2025-01-10 08:09] LABS: Alanine Aminotransferase 28 U/L (7-40); Alkaline Phosphatase 94 U/L (46-116); Anion Gap 11 (5-15); BUN/Creatinine Ratio 19.7 (10.0-20.0); Blood Urea Nitrogen 15 mg/dL (9-23); Carbon Dioxide 28 mmol/L (20-31); Chloride 101 mmol/L (98-107); Potassium 4.3 mmol/L (3.5-5.1); Sodium 140 mmol/L (136-145); Total Protein 5.8 g/dL (5.7-8.2)
[2025-01-10 08:10] LABS: Albumin 3.3 g/dL (3.2-4.8); Bilirubin, Total 0.3 mg/dL (0.2-1.0)
[2025-01-10 08:11] LABS: Calcium 8.3 mg/dL (8.7-10.4); Glucose 116 mg/dL (74-106)
--- NOTE | 2025-01-10 15:16 | DVHPNRES ---
Progress Note Date Seen: Jan 10, 2025 Resident Creating Document: MAL PAZ Medical Necessity Reason Pt with a Central, PICC or Fol: No The following are medically ne: Rodas Catheter Subjective Review of Systems Patient is a 69-year-old bed-bound female with past medical history of type 1 diabetes, multiple strokes, hypertension, hyperlipidemia, mild dementia, and hypothyroidism, presented to [facility] ED with complaint of failure to thrive. History was taken from both the patient and her son Mark Anthony. 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 She was heard yelling for help by her neighbors who contacted 911, and was subsequently brought to the emergency department. The patient reports that her , who had been her primary caregiver, three days ago. Since his passing, she states she has not eaten or drunk anything. Initial labs show WBCs 13.8 with neutrophilia, hypernatremia, creatinine 1.09, creatinine kinase 1187, and TSH 19.62. UA is significant for UTI. Chest x-ray shows no acute disease. The patient was started on IV fluids and IV antibiotics. Ultrasound soft tissue head and neck shows 3 x 2 x 4 cm right submandibular mass. The patient was seen and examined at bedside. Overnight events were reviewed. The patient reports having pain in the ulcer site at the back and buttocks. She reports tolerating the food well. No other new complaints reported Patient was seen and examined at bedside. Overnight events were reviewed. The patient reports feeling better. Social work re-assessment was conducted regarding discharge planning. Spoke with patients son, Mark Anthony ([phone]), who is in agreement with transitioning the patient to hospice care. He requested [facility] and was informed that hospice services are covered by insurance. 01/07: Patient was seen and examined at bedside. Overnight events were reviewed. The patient is tolerating a soft diet well. The patient is pending [facility] to a [facility]. 01/08: Patient was seen and examined at bedside. Overnight events were reviewed. The patient is tolerating a soft diet well. The patient is not appropriate for [facility] at this time. Patient is stable and in no apparent distress. Rodas catheter remains intact and patent. 01/09: Patient was seen and examined at bedside. Overnight events were reviewed. No signs or symptoms of distress, shortness of breath, or pain reported or observed. Patient instructed on plan of care and to call for assistance as needed. Rodas catheter was discontinued. 01/10: Patient was seen and examined at bedside. Overnight events were reviewed. Discuss the SNF transfer, was faxed to [facility] ([phone]), pending final acceptance and bed availability. Objective vital signs Vital Sign Date Time Temp Pulse Resp B/P (MAP) Pulse Ox O2 Delivery O2 Flow Rate FiO2 01/10/25 13:00 98.2 65 16 115/67 (83) 98 98.2 01/10/25 08:00 Room Air* 0 21 Total Intake and Output 01/09/25 01/09/25 01/10/25 15:00 23:00 07:00 Intake Total 650 ml Balance 650 ml medications Current Medications Medications Dose Ordered Sig/Lillie Route Start Time Stop Time Status Last Admin Dose Admin Diagnostic Test (Pha) 1 strip ACHS 01/02/25 07:00 01/10/25 11:59 1 STRIP Insulin Human Regular ACHS SC 01/02/25 07:00 01/10/25 12:01 2 UNITS Dextrose 50 ml UD PRN IV 01/02/25 02:45 Atorvastatin Calcium 20 mg HS PO 01/02/25 22:00 01/09/25 22:09 20 MG Clotrimazole 1 applic Q12HR TOP 01/02/25 10:00 01/10/25 10:18 1 APPLIC Levothyroxine Sodium 50 mcg QAM@0600 PO 01/03/25 06:00 01/10/25 06:35 50 MCG Enteral Nutritional Formula 240 ml BIDWM PO 01/03/25 18:00 01/10/25 08:00 240 ML Acetaminophen/ Hydrocodone Bitart 1 tab Q6HPRN PRN PO 01/03/25 16:15 01/08/25 17:29 1 TAB Lisinopril 5 mg DAILY PO 01/07/25 10:00 01/10/25 10:18 5 MG Saccharomyces Boulardii 250 mg BID PO 01/10/25 22:00 Examination General: Patient is AOx2, follows commands HEENT: Normocephalic, atraumatic, normal reactive pupils, EOM intact, pink conjunctiva, pink dry mucous membrane, poor dentition, presence of large circular mass that is nontender to the touch and is mobile Respiratory/pulmonary: Bilateral chest expansion, no pain on palpation of chest wall, clear lungs bilaterally, vesicular murmurs present in almost all lung shaffer, no associated crackles or wheezes. Cardiovascular: Normal RRR, normal S1 and S2, no murmurs Abdomen: Abdomen nondistended, normal bowel sounds, soft, there is no pain to palpation in any of the abdominal quadrants, no palpable masses : Entire perineum and area including mons pubis has presence of bright red beefy rash that is painful to the touch, presence of Rodas catheter Extremities: No deformities, there is no peripheral edema present at the lower extremities, normal pulses Skin: Presence of sacral edema with minor breakdown of skin (decubitus sacral ulcer stage I present on admission) Neurological: Intact cranial nerves with no focal neurologic deficits, study limited due to patient's underlying disorientation laboratory and microbiology Laboratory Tests 01/10/25 06:24 Test 01/10/25 06:24 Range/Units Serum Glucose 116 H 74-106 mg/dL Microbiology Date/Time Source Procedure Growth Status 01/02/25 03:35 Voided Urine Urine Culture - Final Escherichia coli Complete 01/02/25 02:09 Blood Blood Culture - Final NO GROWTH AFTER 5 DAYS OF INCUBATION. Complete Labs and/or images reviewed: Labs reviewed by me, Image(s) reviewed by me Problem List/Assessment/Plan Problem List/Assessment/Plan Assessment and Plan: Dehydration - IV fluids Rhabdomyolysis likely due to above, Creatine Kinase 1187 > 1190 > 840 > 706 downtrending - NS 1000 cc bolus once - NS 500 bolus once - NS maintenance 100 cc/hr - Monitor CK and renal function PAVAN on CKD likely due to VMN/hemodynamically mediated - Monitor renal function - Avoid nephrotoxic drugs Acute Cystitis with microscopic hematuria - Ceftriaxone Sodium 50 ml IV daily - Urine Bacterial Culture Preliminary >100,000 CFU/mL Gram Negative Rods E scherichia coli Sacral Decubitus Ulcer, possibly stage 1 POA - Wound culture has been ordered - Wound care consult has been ordered - Vancomycin per pharmacy protocol Cutaneous Candidiasis - Clotrimazole 1 application q 12 hours Type 1 Diabetes Mellitus with hyperglycemia, HbA1c 7.1 - Mild SSI - Accu-chek Hypothyroidism, TSH 16.99 ? Limpoma - ULTRASOUND SOFT TISSUE HEAD AND NECK: 3 x 2 x 4 cm right submandibular mass. - FT4 and Total T3 pending - Levothyroxine 50 mcg PO daily Hypertension - Lisinopril 10 mg OI daily Hyperlipidemia - Atorvastatin 20 mg PO HS Mild Dementia History of Multiple Strokes, patient is bed-bound - q2 turns to avoid pressure ulcers Diet: Soft DVT prophylaxis: Enoxaparin 70 mg GI prophylaxis: Not indicated Goals of care: Full code, discussed for >16 minutes on 01/10/25 Plan discussed with patient Plan discussed with Dr. Eagle Plan discussed with: Other Dietary Evaluation Review Comments: CCHO-60 Cardiac Diet with Ace for wound healing and Glucerna BID 240ml PO supplements Expected Outcomes/Goals: Promote wound healing process MAL PAZ Jan 10, 2025 15:16
--- NOTE | 2025-01-10 15:53 | DVHDSRES ---
Discharge Summary Date of Admission Resident Creating Document: MAL PAZ RESIDENT Jan 02, 2025 at 02:36 Date of Discharge: Jan 10, 2025 Admitting Diagnosis failure to thrive Labs/Diagnostic Data: Laboratory Results Test 01/10/25 11:41 01/10/25 06:24 01/04/25 05:50 01/03/25 06:31 POC Glucose 150 mg/dl (70-106) White Blood Count 9.0 10^3/uL (4.4-10.8) Red Blood Count 3.34 10^6/uL (4.0-5.20) Hemoglobin 10.4 g/dL (12.2-16.2) Hematocrit 30.6 % (36.0-46.0) Mean Corpuscular Volume 91.8 fL (80.0-100.0) Mean Corpuscular Hemoglobin 31.1 pg (28.0-32.0) Mean Corpuscular Hemoglobin Concent 33.9 g/dL (32.0-36.0) Red Cell Distribution Width 14.6 % (11.8-14.3) Platelet Count 211 10^3/uL (140-450) Mean Platelet Volume 8.5 fL (6.9-10.8) Neutrophils (%) (Auto) 69.2 % (37.0-80.0) Lymphocytes (%) (Auto) 21.0 % (10.0-50.0) Monocytes (%) (Auto) 6.8 % (0.0-12.0) Eosinophils (%) (Auto) 2.4 % (0.0-7.0) Basophils (%) (Auto) 0.6 % (0.0-2.0) Neutrophils # (Auto) 6.2 10 ^3/uL (1.6-8.6) Lymphocytes # (Auto) 1.9 10 ^3/uL (0.4-5.4) Monocytes # (Auto) 0.6 10 ^3/uL (0-1.3) Eosinophils # (Auto) 0.2 10 ^3/uL (0-0.8) Basophils # (Auto) 0 10 ^3/uL (0-0.2) Nucleated Red Blood Cells 0.1 % Sodium Level 140 mmol/L (136-145) Potassium Level 4.3 mmol/L (3.5-5.1) Chloride Level 101 mmol/L (98-107) Carbon Dioxide Level 28 mmol/L (20-31) Anion Gap 11 (5-15) Blood Urea Nitrogen 15 mg/dL (9-23) Creatinine 0.76 mg/dL (0.550-1.02) Glomerular Filtration Rate Calc 85 mL/min (>90) BUN/Creatinine Ratio 19.7 (10.0-20.0) Serum Glucose 116 mg/dL (74-106) Calcium Level 8.3 mg/dL (8.7-10.4) Total Bilirubin 0.3 mg/dL (0.2-1.0) Aspartate Amino Transferase (AST) 31 U/L (13-40) Alanine Aminotransferase (ALT) 28 U/L (7-40) Alkaline Phosphatase 94 U/L (46-116) Total Protein 5.8 g/dL (5.7-8.2) Albumin 3.3 g/dL (3.2-4.8) Creatine Kinase 706 U/L (34-145) Random Vancomycin Level 9.3 ug/mL (5-10) Test 01/02/25 03:59 01/02/25 03:35 01/02/25 02:09 01/01/25 21:32 Prothrombin Time 10.9 sec (9.3-11.8) Prothrombin Time INR 1.03 (0.9-1.15) Activated Partial Thromboplast Time 24.9 SEC (24.5-34.5) Urine Color Light-orange (Yellow) Urine Clarity Turbid (Clear) Urine pH 5.5 (5.0-9.0) Urine Specific [place] 1.026 (1.001-1.035) Urine Protein 1+ (Negative) Urine Ketones Trace (Negative) Urine Blood Trace /uL (Negative) Urine Nitrite Negative (Negative) Urine Bilirubin Negative (Negative) Urine Urobilinogen Normal mg/dL (Negative) Urine Leukocyte Esterase 3+ /uL (Negative) Urine RBC 15 /hpf (0 - 4) Urine Microscopic WBC 113 /HPF (0-5) Urine Squamous Epithelial Cells Few /hpf (<5) Urine Bacteria Many /hpf (None Seen) Urine Glucose Normal mg/dL (Normal) Urine Opiates Screen Neg (NEGATIVE) Urine Fentanyl Screen Neg (NEGATIVE) Urine Barbiturates Screen Neg (NEGATIVE) Urine Phencyclidine Screen Neg (NEGATIVE) Urine Amphetamines Screen Neg (NEGATIVE) Urine Benzodiazepines Screen Neg (NEGATIVE) Urine Cocaine Screen Neg (NEGATIVE) Urine Cannabinoids Screen Neg (NEGATIVE) Free Thyroxine (T4) Calculated 0.74 ng/dL (0.89-1.76) Total Triiodothyronine (TT3) 0.47 ng/mL (0.60-1.81) Hemoglobin A1c 7.1 % A1C (<5.7) Lactic Acid Level 1.8 mmol/L (0.4-2.0) Phosphorus Level 3.2 mg/dL (2.4-5.1) Ammonia < 10 umol/L (11-32) B-Type Natriuretic Peptide 68.59 pg/mL (0-100) Vitamin B12 Level 825 pg/mL (211-911) Vitamin D 25-Hydroxy 24.4 ng/mL (30.0-100) Thyroid Stimulating Hormone (TSH) 19.62 uIU/mL (0.55-4.78) Other Laboratory Tests 01/10/25 06:24 Brief Hx & Hospital Course: The patient is a 69-year-old bed-bound female with a history of type 1 diabetes mellitus, multiple strokes, hypertension, hyperlipidemia, mild dementia, and hypothyroidism. She presented to [facility] Emergency Department with failure to thrive. History was obtained from both the patient and her son, Mark Anthony. They reported that the patients , who was her primary caregiver, in his sleep three days prior and remained in bed next to her until neighbors heard her calling for help and contacted emergency services. Since her 's passing, the patient had not consumed any food or fluids. On arrival, she was found to be dehydrated and in poor condition. Laboratory results revealed leukocytosis with neutrophilia, hypernatremia, elevated creatine kinase suggestive of rhabdomyolysis, acute kidney injury, and elevated TSH indicating hypothyroidism. Urinalysis was significant for a urinary tract infection. Chest X-ray showed no acute cardiopulmonary disease. Ultrasound of the soft tissue of the head and neck revealed a 3 x 2 x 4 cm right submandibular mass. The patient was started on intravenous fluids and antibiotics. She was evaluated daily at bedside and reported improvement in symptoms, including better tolerance of a soft diet. She also reported pain at the site of a sacral ulcer. A wound care consult and culture were ordered, and Vancomycin was initiated. The patient was found to have cutaneous candidiasis in the perineal area, which was treated with topical Clotrimazole. Her rhabdomyolysis was managed with IV fluid boluses and maintenance fluids, with creatine kinase levels showing a downtrend. Her acute kidney injury was monitored closely, and nephrotoxic medications were avoided. Her urinary tract infection was treated with IV Ceftriaxone, and urine culture grew Escherichia coli. Her hypothyroidism was managed with Levothyroxine, and further thyroid studies were pending. The patients diabetes was managed with a mild sliding scale insulin regimen and regular glucose monitoring. Her hypertension and hyperlipidemia were managed with Lisinopril and Atorvastatin, respectively. She remained bed-bound and was turned every two hours to prevent pressure ulcers. A Rodas catheter was initially placed and later discontinued. She was started on DVT prophylaxis with Enoxaparin. Social work coordinated discharge planning with her son, who agreed to transition the patient to hospice care. Initially, [facility] was requested, but the patient was later deemed not appropriate for [facility]. On January 10, a referral for nursing home facility placement was faxed to [facility], pending final acceptance and bed availability. Examination General: Patient is AOx2, follows commands HEENT: Normocephalic, atraumatic, normal reactive pupils, EOM intact, pink conjunctiva, pink dry mucous membrane, poor dentition, presence of large circular mass that is nontender to the touch and is mobile Respiratory/pulmonary: Bilateral chest expansion, no pain on palpation of chest wall, clear lungs bilaterally, vesicular murmurs present in almost all lung shaffer, no associated crackles or wheezes. Cardiovascular: Normal RRR, normal S1 and S2, no murmurs Abdomen: Abdomen nondistended, normal bowel sounds, soft, there is no pain to palpation in any of the abdominal quadrants, no palpable masses : Entire perineum and area including mons pubis has presence of bright red beefy rash that is painful to the touch, presence of Rodas catheter Extremities: No deformities, there is no peripheral edema present at the lower extremities, normal pulses Skin: Presence of sacral edema with minor breakdown of skin (decubitus sacral ulcer stage I present on admission) Neurological: Intact cranial nerves with no focal neurologic deficits, study limited due to patient's underlying disorientation Operations or Procedures PATIENT: MELO ADKINS ACCT: [id number] UNIT: [id number] : 1955 LOC: OVERFLOW ROOM / BED: 1018-ER / A AGE / SEX: 69 / F ADM STATUS: ADM IN SERVICE 0 ORDERING PHYSICIAN: SHAHRZAD FLAHERTY PROCEDURE(s): THYDU - THYROID REASON: ELEVATED TSH ORDER NUMBER(s): [id number], ACCESSION NUMBER(s): [id number] ULTRASOUND SOFT TISSUE HEAD AND NECK CLINICAL INDICATION: ELEVATED TSH TECHNIQUE: Multiple real time sonographic images of the thyroid were obtained. FINDINGS: The right thyroid gland measures 3 x 1 x 1 cm. The left thyroid gland measures approximately 3 x 1 x 2 cm. The isthmus measures 0.5 cm. 3 x 2 x 4 cm right sub[address]ibular mass. CT soft tissue neck is recommended.. IMPRESSION: 3 x 2 x 4 cm right submandibular mass. CT soft tissue neck is recommended.. - ---- PATIENT: MELO ADKINS ACCT: [id number] UNIT: [id number] : 1955 LOC: ER ROOM / BED: / AGE / SEX: 69 / F ADM STATUS: REG ER SERVICE 56 ORDERING PHYSICIAN: MISTY POLLACK PROCEDURE(s): CXR1 - CHEST XRAY 1 VIEW REASON: gen weak ORDER NUMBER(s): [id number], ACCESSION NUMBER(s): [id number] CHEST RADIOGRAPH Indication: gen dang Technique: Single frontal view of the chest was obtained COMPARISON: None FINDINGS: Lines and Tubes: None Lungs: Clear Pleura: No effusion. No pneumothorax. Cardiomediastinal contours: Unremarkable Bones: Unremarkable IMPRESSION: No acute disease. - ---PATIENT: NENA ADKINS ACCT: [id number] : 1955 LOC: [facility] ROOM / BED: [address] [place] [address] AGE / SEX: 69 / F ADM STATUS: ADM IN SERVICE UNIT: [id number] ORDERING PHYSICIAN: ER PROCEDURE(s): EKG - ELECTROCARDIGRAM ORDER NUMBER(s): [id number], ACCESSION NUMBER(s): [id number] [facility] Test Date: 2025-01-01 Test Time: 19:30:14 Pat Name: NENA ADKINS Department: [facility] ED Patient ID: [facility]-[id number] Room: [facility] Gender: F Retail Pricing Coordinator: MIKE : 1955 Requested By: EMERGENCY EMERGENCY Order Number: [id number] Reading MD: Measurements Intervals [place] Rate: 107 P: 0 NJ: 38 QRS: -48 QRSD: 147 T: 43 QT: 413 QTc: 551 Interpretive Statements Sinus tachycardia Paired ventricular premature complexes Short NJ interval Right atrial enlargement IVCD, consider atypical RBBB Left ventricular hypertrophy Inferior infarct, old Anterior infarct, old Lateral leads are also involved Artifact in lead(s) I,II,III,aVR,aVL,aVF,V1,V2,V3,V4,V5,V6 and baseline wander in lead(s) II Please click the below link to view image of tracing. DICTATED BY: DICTATED DATE/TIME:01/01/251929 Condition at Discharge: Stable Final Diagnosis/Problems List Rhabdomyolysis PAVAN likely d/t VMN UTI likely acute cystitis Discharge Disposition: Fdc Facility Discharge Instruct/Medications Diet: Consistent carbohydrate, Cardiac 2g Na,low cholest Activity: No Restrictions, As Tolerated Follow Up/Referral: Follow up at SNF Medications: as per SNF paper work No Active Prescriptions or Reported Meds Discharge Statement: "Patient was advised to return to the ER or call 911 if any headaches, dizziness, shortness of breath, chest pain, abdominal pain, bleeding, fevers, or worsening of medical condition. Patient was counseled about treatment plan, medications, possible side effects, patientverbalized understanding. All questions were answered to the best of my ability. This discharge took greater then 30 minutes in planning, reviewing documentation, counseling the patient, and discussing with other team members." ASSESSMENT ASSESSMENT Assessment Rhabdomyolysis PAVAN likely d/t VMN UTI likely acute cystitis Date of Service: Jan 10, 2025 Billing Provider: SHANELL GUZMAN MD Common Visit Codes: 40648-FCS/OBS DISCH DAY >30min MAL PAZ RESIDENT Jan 10, 2025 15:53 SHANELL GUZMAN MD Jan 13, 2025 00:49
[2025-01-10] MEDS ORDERED: FLORASTOR (S. BOULARDII) 250 MG CAP PO SCH (22:00)
== END 2025-01-10 17:43 | DRG 871 ==
LOC: EDBD 19:30 → ER 19:30 → MERGE 01-02 02:36 → EDBD 01-02 02:36 → OVERFLOW 01-02 02:36 → WEST WING 01-02 17:35
PROVIDERS: ADMIT Internal Medicine; ATTEND Internal Medicine
DX: A41.9 Sepsis, unspecified organism (principal); N17.0 Acute kidney failure with tubular necrosis; M62.82 Rhabdomyolysis; N30.01 Acute cystitis with hematuria; E87.0 Hyperosmolality and hypernatremia; Z66 Do not resuscitate; E86.0 Dehydration; R62.7 Adult failure to thrive; E78.5 Hyperlipidemia, unspecified; E03.9 Hypothyroidism, unspecified; E10.65 Type 1 diabetes mellitus with hyperglycemia; L89.151 Pressure ulcer of sacral region, stage 1; H54.7 Unspecified visual loss; I10 Essential (primary) hypertension; F03.90 Unspecified dementia, unspecified severity, without behavioral disturbance, psychotic disturbance, mood disturbance, and anxiety; Z74.01 Bed confinement status; Z86.73 Personal history of transient ischemic attack (TIA), and cerebral infarction without residual deficits; Z79.899 Other long term (current) drug therapy; Z68.28 Body mass index [BMI] 28.0-28.9, adult
CPT/HCPCS: 36415; 71045; 76536; 80048; 80053; 80202; 80307; 81001; 82140; 82306; 82550; 82607; 82962; 83036; 83605; 83880; 84100; 84439; 84443; 84480; 85025; 85610; 85730; 87040; 87086; 87088; 87186; 93005; 97110; 97163; 97530; G0378; J1815

== ENCOUNTER 2025-01-17 13:06 | Inpatient (IN) | payer MEDICARE, MEDICAID ==
[~2025-01-17] VITALS: Ht 157.5 cm; Wt 90.8 kg
--- NOTE | 2025-01-17 13:44 | ED.PDOC ---
History of Present Illness HPI Comments Ms. Mc is a bed bound 69 year old female with PMHx of type 1 diabetes mellitus, multiple strokes, hypothyroidism, hyperlipidemia, dementia, and hypertension, who presents today BIBA due to multiple episodes of black emesis. The patient is altered and a poor historian. History taken from EMS personnel and previous records. Per proof clerk, the patient is brought from [facility] due to multiple episodes of coffee ground emesis since last night. At the seen blood pressure was 154/70 mmHg, blood glucose 254, O2 saturation 92% for which supplemental oxygen at 2L NC was placed. On initial evaluation, patient is AOx2, complaining of thirst, with stable vitals. Time Seen by MD: 13:30 Primary Care Provider: MARK Allergies: Coded Allergies: Coconut (Cocos Nucifera) (Verified Allergy, Severe, 01/17/25) Anaphylaxis Home Meds Reported Medications Warfarin Sodium (Warfarin Sodium) Unknown Strength Tab, PO DAILY 01/09/23 Levothyroxine Sodium (Levothyroxine Sodium) 75 Mcg Tab, 1 TAB PO QAM 01/09/23 Information Source: Emergency Med Personnel Mode of Arrival: EMS Severity: Moderate Timing: Days Duration: Other (Unknown) Prehospital treatment: Oxygen (2L NC ) Past Medical History PAST MEDICAL HISTORY: CVA, DM, High Lipids, HTN, Thyroid Surgical History: Denies all surgeries CATH LABORATORY TECHNICIAN History: No Pertinent CATH LABORATORY TECHNICIAN History Family History Family History: Reviewed,noncontributory to illness Social History Smoker: Non-Smoker Alcohol: Denies ETOH Use Drugs: Denies Drug Use Lives In: Home Unable to Obtain due to: Altered Mental Status Physical Exam General Appearance: Moderate Distress, Obese HEENT: Normal ENT Inspection, PERRL/EOMI, Pharynx Normal, Other (Dry mucos membranes, presence of black residue on tongue ) Neck: Non-Tender, Normal Inspection Respiratory: Chest Non-Tender, Lungs Clear, No Accessory Muscle Use, No Respiratory Distress, Normal Breath Sounds Cardiovascular: No Edema, No Murmur, Normal Peripheral Pulses, Regular Rate/Rhythm Breast Exam: Deferred Gastrointestinal: No Organomegaly, Normal Bowel Sounds, Soft, Tenderness (epigastric and periumbilical tenderness on palpation, no guarding ) Genitalia: Deferred Pelvic: Deferred Rectal: Deferred Extremities: Normal capillary refill, Normal inspection, Non-tender, No pedal edema Neurologic: Other (AOx2, Follows commands ) Cerebellar Function: NOT DONE Reflexes: NOT DONE Skin: Other (Presence of sacral edema, bilateral hands are stained with black residue ) Lymphatic: Other (No cervical adenopathy noted ) Was a procedure done? Was a procedure done?: No EKG EKG : Pulse Rate (adult): 97 [place]: Normal Cardiac Rhythm: NSR Block: None ST: Old, Inf, Infarct Differential Dx Considerations may include: Colitis, Gastroenteritis, Gastritis, Upper GI Bleed, SBO, ACS, CO X-Ray, Labs, Meds, VS Vital Signs Date Time Temp Pulse Resp B/P (MAP) Pulse Ox O2 Delivery O2 Flow Rate FiO2 01/17/25 15:55 97 01/17/25 13:10 97 01/17/25 13:06 99.8 86 16 156/70 94 99.8 Lab Test 01/17/25 16:40 01/17/25 15:28 01/17/25 14:19 Range/Units Haptoglobin Pending Lactic Acid Level Pending 2.7 *H 0.4-2.0 mmol/L Troponin I High Sensitivity 8 8 </=34 ng/L White Blood Count 13.8 H 4.4-10.8 10^3/uL Red Blood Count 3.45 L 4.0-5.20 10^6/uL Hemoglobin 10.6 L 12.2-16.2 g/dL Hematocrit 32.2 L 36.0-46.0 % Mean Corpuscular Volume 93.4 80.0-100.0 fL Mean Corpuscular Hemoglobin 30.7 28.0-32.0 pg Mean Corpuscular Hemoglobin Concent 32.8 32.0-36.0 g/dL Red Cell Distribution Width 15.2 H 11.8-14.3 % Platelet Count 305 140-450 10^3/uL Mean Platelet Volume 8.3 6.9-10.8 fL Neutrophils (%) (Auto) 90.4 H 37.0-80.0 % Lymphocytes (%) (Auto) 6.4 L 10.0-50.0 % Monocytes (%) (Auto) 3.1 0.0-12.0 % Eosinophils (%) (Auto) 0.0 0.0-7.0 % Basophils (%) (Auto) 0.1 0.0-2.0 % Neutrophils # (Auto) 12.5 H 1.6-8.6 10 ^3/uL Lymphocytes # (Auto) 0.9 0.4-5.4 10 ^3/uL Monocytes # (Auto) 0.4 0-1.3 10 ^3/uL Eosinophils # (Auto) 0 0-0.8 10 ^3/uL Basophils # (Auto) 0 0-0.2 10 ^3/uL Nucleated Red Blood Cells 0.1 % Reticulocyte Count (auto) 2.87 H 0.5-1.5 % Prothrombin Time 10.3 9.3-11.8 sec Prothrombin Time INR 0.97 0.9-1.15 Activated Partial Thromboplast Time 24.3 L 24.5-34.5 SEC Sodium Level 135 L 136-145 mmol/L Potassium Level 5.9 *H 3.5-5.1 mmol/L Chloride Level 101 98-107 mmol/L Carbon Dioxide Level 25 20-31 mmol/L Anion Gap 9 5-15 Blood Urea Nitrogen 51 H 9-23 mg/dL Creatinine 1.05 H 0.550-1.02 mg/dL Glomerular Filtration Rate Calc 58 >90 mL/min BUN/Creatinine Ratio 48.6 H 10.0-20.0 Serum Glucose 232 H 74-106 mg/dL Calcium Level 8.9 8.7-10.4 mg/dL Iron Level 21 L 50-170 ug/dL Total Iron Binding Capacity 212 L 250-425 ug/dL Percent Iron Saturation 9.9 L 15-50 % Total Bilirubin 0.4 0.2-1.0 mg/dL Aspartate Amino Transferase (AST) 41 H 13-40 U/L Alanine Aminotransferase (ALT) 39 7-40 U/L Alkaline Phosphatase 117 H 46-116 U/L Total Protein 5.8 5.7-8.2 g/dL Albumin 3.4 3.2-4.8 g/dL Urine Color Yellow Yellow Urine Clarity Clear Clear Urine pH 5.5 5.0-9.0 Urine Specific [place] 1.029 1.001-1.035 Urine Protein Trace H Negative Urine Ketones Trace Negative Urine Blood Negative Negative /uL Urine Nitrite Negative Negative Urine Bilirubin Negative Negative Urine Urobilinogen Normal Negative mg/dL Urine Leukocyte Esterase 1+ Negative /uL Urine RBC 5 0 - 4 /hpf Urine Microscopic WBC 5 0-5 /HPF Urine Squamous Epithelial Cells Few <5 /hpf Urine Bacteria None seen None Seen /hpf Urine Mucus Few None Seen Urine Glucose 2+ H Normal mg/dL Urine Opiates Screen Neg NEGATIVE Urine Fentanyl Screen Neg NEGATIVE Urine Barbiturates Screen Neg NEGATIVE Urine Phencyclidine Screen Neg NEGATIVE Urine Amphetamines Screen Neg NEGATIVE Urine Benzodiazepines Screen Neg NEGATIVE Urine Cocaine Screen Neg NEGATIVE Urine Cannabinoids Screen Neg NEGATIVE Current Medications Medications (Trade) Dose Ordered Sig/Lillie Route Start Time Stop Time Status Last Admin Sodium Chloride 1,000 ml @ 1,000 mls/hr Q1H ONCE IV 01/17/25 13:45 01/17/25 14:44 DC 01/17/25 15:49 Pantoprazole Sodium (Protonix) 40 mg ONCE ONCE IV 01/17/25 13:45 01/17/25 13:46 DC 01/17/25 15:49 Time of 1ST Reevaluation: 15:00 Reevaluation 1ST: Unchanged Patient Education/Counseling: Other (Discussed with patient within her understanding, discussed plan with nurses) Family Education/Counseling: No Family Present Comments The patient was brought by EMS due to persistent coffee ground emesis since last night On evaluation the patient is AOx2, stating she is thirsty, with stable vitals Physical exam is positive for presence of black residue on both her tongue and hands, and pain on epigastric and periumbilical palpation Abdominal CT shows prominent stool burden within the high to low rectum and slight mesorectal edema, possible constipation/stercoral colitis, air fluid level of the stomach, and fluid distention of the esophageal vestibule. UA shows possible UTI. Labs are significant for leukocytosis with neutrophilia, hyperkalemia, and lactic acid 2.7 Due to suspicion of possible GI bleed the patient has been placed on NPO, fluid bolus was given, IV protonix was started GI has been consulted 1 dose of Flagyl and Zosyn have been administered SEPSIS Sepsis Screen Physician Orders Ct Ab Pel Wo Con-No Oral Or Iv (01/17/25 13:32) Blood Culture (01/17/25 13:32) Electrocardigram (01/17/25 13:37) Electrocardigram (01/17/25 14:37) Chest Xray 1 View (01/17/25 13:44) Npo (Nothing By Mouth) Diet (01/17/25 Dinner) * Gi Dvh [employer] Agent (01/17/25 15:48) Piperacillin-Tazob 3.375gm (Zosyn 3.375g (01/17/25 22:00) Metronidazole 500mg/100ml (Flagyl 500mg/ (01/17/25 22:00) Allergies (01/17/25 15:57) Code Status (01/17/25 15:57) Sodium Chloride 0.9% (01/17/25 16:00) Hydrocodone-Acet 5/325mg Tab ([place] 5/32 (01/17/25 16:00) Ondansetron Hcl (Zofran) (01/17/25 16:00) Complete Blood Count (01/18/25 04:00) Comprehensive Metabolic Panel (01/18/25 04:00) Acetaminophen Tablet (Tylenol Tablet) (01/17/25 16:00) Morphine Sulfate Injection (01/17/25 16:00) Sequential Compression Device (01/17/25 ) Levothyroxine Tablet (Synthroid Tablet) (01/18/25 07:00) Pantoprazole (Protonix) (01/17/25 16:00) Glucose Blood (Accu-Chek Comfort Curve T (01/17/25 18:00) Insulin R (Human) (Insulin R) (01/17/25 18:00) Dextrose 50% Syringe (01/17/25 16:15) Stool Occult Blood (01/17/25 16:04) Iron Panel (01/17/25 16:04) Haptoglobin (01/17/25 16:04) Direct Molly (01/17/25 16:04) Head Without Contrast (01/17/25 17:04) Abg W/ Co-Ox (01/17/25 17:04) Antibody Screen (01/17/25 16:40) Potassium (01/17/25 21:24) Vital Signs Date Time Temp Pulse Resp B/P (MAP) Pulse Ox O2 Delivery O2 Flow Rate FiO2 01/17/25 15:55 97 01/17/25 13:10 97 01/17/25 13:06 99.8 86 16 156/70 94 99.8 Laboratory Tests Test 01/17/25 15:28 01/17/25 16:40 Lactic Acid Level 2.7 mmol/L (0.4-2.0) *H Pending White Blood Count 13.8 10^3/uL (4.4-10.8) H Medications Medications Dose Ordered Sig/Lillie Route Start Time Stop Time Status Last Admin Dose Admin Pantoprazole Sodium 40 mg ONCE ONCE IV 01/17/25 13:45 01/17/25 13:46 DC 01/17/25 15:49 Sodium Chloride 1,000 ml @ 1,000 mls/hr Q1H ONCE IV 01/17/25 13:45 01/17/25 14:44 DC 01/17/25 15:49 Departure 1 Departure Time of Disposition: 15:41 Impression: Primary Impression: Acute metabolic encephalopathy Additional Impression: Colitis Disposition: 30 STILL A PATIENT Admit to: Med Surg Condition: Stable Critical Care Note Critical Care Time?: No Stability Stability form required: SHAHRZAD Lloyd RESIDENT Jan 17, 2025 13:43
[2025-01-17 14:28] LABS: Urine Protein, UAD TRACE (Negative)
[2025-01-17 14:41] LABS: Opiate Scree,Urine Neg (NEGATIVE)
[2025-01-17 14:43] LABS: Amphetamine Screen, Urine Neg (NEGATIVE); Barbiturate Scree,Urine Neg (NEGATIVE); Benzodiazephine Screen, Urine Neg (NEGATIVE); Cannabinoid Screen, Urine Neg (NEGATIVE); Cocaine Screen, Urine Neg (NEGATIVE); Phencyclidine Screen, Urine Neg (NEGATIVE)
--- NOTE | 2025-01-17 14:51 | DVH ---
EXAM: CT CT AB PEL WO CON-NO ORAL OR IV INDICATION: Abdominal pain TECHNIQUE: Volumetric multidetector CT images of the abdomen and pelvis were obtained without contras t. All CT scans at this facility use dose modulation, iterative reconstruction, and/or weight based d osing when appropriate to reduce radiation dose to as low as reasonably achievable. COMPARISON: None FINDINGS: [LOWER CHEST]: Atelectasis in bilateral lung bases with nodularity. The cardiac size is normal withou t pericardial effusion. [LIVER]: Normal hepatic size without suspicious focal lesion. [GALLBLADDER AND BILIARY TREE]: No cholelithiasis. [SPLEEN]: Unremarkable. [PANCREAS]: Unremarkable. [ADRENAL GLANDS]: Unremarkable [KIDNEYS]: No hydronephrosis. No nephroureterolithiasis. No suspicious focal lesion. [BLADDER]: Unremarkable for the degree distention. [REPRODUCTIVE ORGANS]: Unremarkable. [BOWEL/MESENTERY]: Air-fluid level of the stomach. Fluid distention of the esophageal vestibule. Prom inent stool burden within the high to low rectum and slight mesorectal edema. Correlate for constipa tion/stercoral colitis. [ASCITES]: Absent [LYMPHADENOPATHY]: No pathologically enlarged lymph nodes by CT size criteria [VASCULATURE]: No aneurysmal dilatation. [ABDOMINAL WALL]: Unremarkable. [MUSCULOSKELETAL]: No acute fracture or aggressive focal osseous lesion. Multifocal degenerative parra ge of the visualized spine. IMPRESSION: 1. Prominent stool burden within the high to low rectum and slight mesorectal edema. 2. Correlate for constipation/stercoral colitis. 3. Air-fluid level of the stomach. 4. Fluid distention of the esophageal vestibule. Correlate for reflux and/or gastritis.
--- NOTE | 2025-01-17 14:54 | DVH ---
XY CHEST XRAY 1 VIEW, HISTORY: Possible aspiration COMPARISON: None None TECHNICAL DATA: 1 view of the chest was obtained. FINDINGS: Lines and tubes: None Cardiomediastinal silhouette: normal Pulmonary vasculature: Prominent Lung expansion: normal Lung airspace: normal Lung interstitium: normal Pleura: normal Pneumothorax: no Bones: Unremarkable Other: no IMPRESSION: Pulmonary vascular congestion.
[2025-01-17 15:00] VITALS: PULSE 94; RESP 14; O2SAT 97
[2025-01-17] MEDS: SODIUM CHLORIDE 0.9% 1,000 ML IV ONE (15:49)
[2025-01-17] MEDS: PANTOPRAZOLE 40 MG/10 ML VIAL INJ IV ONE (15:49)
[2025-01-17] MEDS ORDERED: ONDANSETRON HCL 4 MG/2 ML VIAL IV PRN (16:00)
[2025-01-17] MEDS ORDERED: MORPHINE SULFATE INJ 2 MG/ml SYRG IV PRN (16:00)
[2025-01-17] MEDS: PANTOPRAZOLE 40 MG/10 ML VIAL INJ IV SCH (16:00)
[2025-01-17] MEDS ORDERED: ACETAMINOPHEN 325 MG TAB PO PRN (16:00)
--- NOTE | 2025-01-17 16:03 | DVHHP2 ---
History of Present Illness Reason for Visit: Hematemesis rule out GI bleed History of Present Illness Wendy Quiñones is a 69-year-old female with past medical history of dementia, CVA, diabetes, hyperlipidemia, hypertension, and thyroid disease who presents to the ED with episodes of black emesis that started today while she was at [facility] per records. Upon examination patient on 2 L nasal cannula. Patient is able to wake up and open her eyes however takes a great deal of tactile stimuli to arouse patient. Unable to obtain further information from patient as patient is in and out. Bilateral equal chest rise noted with no shortness of breath noted. 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 ASSISTANT: Dementia Endocrine: Diabetes, Hypothyroidism Past Medical History CVA Lives: Intermediate Domestic Violence: Neg Review of Systems Constitutional: Yes: Other (Lethargic) Gastrointestinal: Other (Hematemesis) Allergies: Coded Allergies: Coconut (Cocos Nucifera) (Verified Allergy, Severe, 01/17/25) Anaphylaxis Exam Vital Signs Vital Signs Date Time Temp Pulse Resp B/P (MAP) Pulse Ox O2 Delivery O2 Flow Rate FiO2 01/17/25 13:10 97 01/17/25 13:06 99.8 16 156/70 94 99.8 Respiratory: Normal air movement Cardiovascular: Normal S1, Normal S2 Abdominal: Soft Labs/Xrays Labs Test 01/17/25 14:19 Range/Units Urine Color Yellow Yellow Urine Clarity Clear Clear Urine pH 5.5 5.0-9.0 Urine Specific [place] 1.029 1.001-1.035 Urine Protein Trace H Negative Urine Ketones Trace Negative Urine Blood Negative Negative /uL Urine Nitrite Negative Negative Urine Bilirubin Negative Negative Urine Urobilinogen Normal Negative mg/dL Urine Leukocyte Esterase 1+ Negative /uL Urine RBC 5 0 - 4 /hpf Urine Microscopic WBC 5 0-5 /HPF Urine Squamous Epithelial Cells Few <5 /hpf Urine Bacteria None seen None Seen /hpf Urine Mucus Few None Seen Urine Glucose 2+ H Normal mg/dL Urine Opiates Screen Neg NEGATIVE Urine Fentanyl Screen Neg NEGATIVE Urine Barbiturates Screen Neg NEGATIVE Urine Phencyclidine Screen Neg NEGATIVE Urine Amphetamines Screen Neg NEGATIVE Urine Benzodiazepines Screen Neg NEGATIVE Urine Cocaine Screen Neg NEGATIVE Urine Cannabinoids Screen Neg NEGATIVE XY CHEST XRAY 1 VIEW, HISTORY: Possible aspiration COMPARISON: None None TECHNICAL DATA: 1 view of the chest was obtained. FINDINGS: Lines and tubes: None Cardiomediastinal silhouette: normal Pulmonary vasculature: Prominent Lung expansion: normal Lung airspace: normal Lung interstitium: normal Pleura: normal Pneumothorax: no Bones: Unremarkable Other: no IMPRESSION: Pulmonary vascular congestion. EXAM: CT CT AB PEL WO CON-NO ORAL OR IV INDICATION: Abdominal pain TECHNIQUE: Volumetric multidetector CT images of the abdomen and pelvis were obtained without contrast. All CT scans at this facility use dose modulation, iterative reconstruction, and/or weight based dosing when appropriate to reduce radiation dose to as low as reasonably achievable. COMPARISON: None FINDINGS: [LOWER CHEST]: Atelectasis in bilateral lung bases with nodularity. The cardiac size is normal without pericardial effusion. [LIVER]: Normal hepatic size without suspicious focal lesion. [GALLBLADDER AND BILIARY TREE]: No cholelithiasis. [SPLEEN]: Unremarkable. [PANCREAS]: Unremarkable. [ADRENAL GLANDS]: Unremarkable [KIDNEYS]: No hydronephrosis. No nephroureterolithiasis. No suspicious focal lesion. [BLADDER]: Unremarkable for the degree distention. [REPRODUCTIVE ORGANS]: Unremarkable. [BOWEL/MESENTERY]: Air-fluid level of the stomach. Fluid distention of the esophageal vestibule. Prominent stool burden within the high to low rectum and slight mesorectal edema. Correlate for constipation/stercoral colitis. [ASCITES]: Absent [LYMPHADENOPATHY]: No pathologically enlarged lymph nodes by CT size criteria [VASCULATURE]: No aneurysmal dilatation. [ABDOMINAL WALL]: Unremarkable. [MUSCULOSKELETAL]: No acute fracture or aggressive focal osseous lesion. Multifocal degenerative change of the visualized spine. IMPRESSION: 1. Prominent stool burden within the high to low rectum and slight mesorectal edema. 2. Correlate for constipation/stercoral colitis. 3. Air-fluid level of the stomach. 4. Fluid distention of the esophageal vestibule. Correlate for reflux and/or gastritis. SEPSIS Sepsis Screen Date sepsis recognized/suspect: Jan 17, 2025 Time Sepsis recognized/suspect: 1245 Recent Procedure: No On Antibiotic Therapy: No Respiratory Rate >20: No Heart Rate >90: No Temp<36 C (96.8 F) or >38.3 C: No SBP <90 or MAP <65 mmHG: No New Acute Mental Status Change: No Is the patient on CPAP, BIPAP,: No Physician Orders Complete Blood Count (01/17/25 13:32) Comprehensive Metabolic Panel (01/17/25 13:32) Ct Ab Pel Wo Con-No Oral Or Iv (01/17/25 13:32) Lactic Acid W/ Reflex Order (01/17/25 13:32) Blood Culture (01/17/25 13:32) Electrocardigram (01/17/25 13:37) Troponin-I Hs (01/17/25 13:37) Electrocardigram (01/17/25 14:37) Troponin-I Hs (01/17/25 14:37) Chest Xray 1 View (01/17/25 13:44) PTPTT (01/17/25 14:15) Npo (Nothing By Mouth) Diet (01/17/25 Dinner) Piperacillin-Tazob 3.375gm (Zosyn 3.375g (01/17/25 15:45) Metronidazole 500mg/100ml (Flagyl 500mg/ (01/17/25 15:45) * Gi Dvh Electron Gun Inspector (01/17/25 15:48) Vital Signs Date Time Temp Pulse Resp B/P (MAP) Pulse Ox O2 Delivery O2 Flow Rate FiO2 01/17/25 13:10 97 01/17/25 13:06 99.8 86 16 156/70 94 99.8 Assessment/Plan Assessment/Plan Assessment Acute metabolic encephalopathy Hematemesis rule out GI bleed ? Constipation versus stercoral colitis ? Reflux versus gastritis Leukocytosis unclear etiology Normocytic anemia Lactic acidosis rule out sepsis Acute hypoxic respiratory failure supplemental oxygen PAVAN likely prerenal Hyperkalemia History of CVA History of diabetes History of hyperlipidemia History of hypertension History of thyroid disease History of dementia Resident of [facility] [facility] Plan Admit to telemetry Supplemental to Pending CBC and BMP labs Repeat potassium level Blood cultures Hyperkalemia protocol UA Urine culture Type and screen Transfuse PRBCs for hemoglobin less than 7.0 CT head ABG IV antibiotics-Flagyl + Zosyn Stool OB Iron panel Reticulocyte count Molly direct and indirect Haptoglobin Hemoglobin A1c ISS and Accu-Cheks Antiemetics Pain management NS 1 L given ED Chest x-ray PTT Troponin EKG Blood cultures Lactic UDS CT abdomen and pelvis NPO IV fluids Home medications reconciled DVT prophylaxis-SCDs PUD prophylaxis-PPIs Discussed plan of care with patient and nurse GI consulted by ED Wound consult-notable wounds on lower extremity [id number] Preventive counseling healthy eating habits, physical activity, and regular checkups Consider resuming warfarin when H&H stable Plan discussed with: Patient, Other (Records and nurse) Date of Service: Jan 17, 2025 Billing Provider: JOSEFINA CROWDER Common Visit Codes: [id number] INP/OBS CARE (HIGH) Secondary Visit Codes: [id number] COUNSELING IND JOSEFINA CROWDER Jan 17, 2025 16:03
[2025-01-17] MEDS ORDERED: DEXTROSE (50%) 50ML SYRG IV PRN (16:15)
[2025-01-17 16:32] LABS: Hematocrit 32.2 % (36.0-46.0); Hemoglobin 10.6 g/dL (12.2-16.2); Mean Corpuscular Hemoglobin 30.7 pg (28.0-32.0); Mean Corpuscular Volume 93.4 fL (80.0-100.0); Nucleated Red Blood Cells % 0.1 %
[2025-01-17 16:45] LABS: INR 0.97 (0.9-1.15); Partial Thromboplastin Time 24.3 SEC (24.5-34.5); Prothrombin Time 10.3 sec (9.3-11.8)
[2025-01-17 16:48] LABS: Alanine Aminotransferase 39 U/L (7-40); Albumin 3.4 g/dL (3.2-4.8); Anion Gap 9 (5-15); BUN/Creatinine Ratio 48.6 (10.0-20.0); Bilirubin, Total 0.4 mg/dL (0.2-1.0); Calcium 8.9 mg/dL (8.7-10.4); Carbon Dioxide 25 mmol/L (20-31); Chloride 101 mmol/L (98-107); Total Protein 5.8 g/dL (5.7-8.2)
[2025-01-17 16:56] LABS: Alkaline Phosphatase 117 U/L (46-116); Blood Urea Nitrogen 51 mg/dL (9-23); Glucose 232 mg/dL (74-106); Sodium 135 mmol/L (136-145)
[2025-01-17 16:59] LABS: Lactic Acid w/Reflex 2.7 mmol/L (0.4-2.0); Potassium 5.9 mmol/L (3.5-5.1)
[2025-01-17] MEDS: ALBUTEROL SULF 2.5 MG/0.5ML(0.5%) NEB SOLN ONE (17:47)
[2025-01-17] MEDS: ACCU-CHEK COMFORT CURVE STRIP VI SCH (18:00)
[2025-01-17] MEDS: InsuLIN REG 1unit/0.01ml Soln (100units/ml) SC SCH (18:00)
[2025-01-17] MEDS: ALBUTEROL SULF 2.5 MG/0.5ML(0.5%) NEB SOLN NEB ONE (18:00)
[2025-01-17 18:01] LABS: Iron 21.0 ug/dL (50-170); Total Iron Binding Capacity 212.0 ug/dL (250-425)
--- NOTE | 2025-01-17 18:14 | ECG ---
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
--- NOTE | 2025-01-17 18:24 | DVH ---
EXAM: CT HEAD WITHOUT CONTRAST INDICATION: ALOC TECHNIQUE: CT of the head without intravenous contrast. Radiation Dose : 1. Head: CT Dose: CTDI volume is 47.57 mGy. Dose-length product is 872.66 mGy*cm The dose indicators for CT are the volume Computed Tomography (CT) Dose Index (CTDIvol) and the Dose Length Product (DLP), and are measured in units of mGy and mGy-cm, respectively. These indicators are not patient dose, but values generated from the CT scanner acquisition factors. The report includes radiation exposure data for exposures received during this examination. COMPARISON: None FINDINGS: There is no evidence of acute intracranial hemorrhage, extra-axial collection, mass effect, midline s hift, herniation or hydrocephalus. Multifocal encephalomalacia throughout the right cerebral hemisphere and left parietal periventricula r deep white matter consistent with sequelae of remote insults. Increased prominence of the ventricles, sulci and cisterns consistent with the sequelae of atrophic c ortical volume loss. The cat-white differentiation is intact. Moderate diffuse confluent periventricular and subcortical white matter hypoattenuation is nonspecifi c but may be related to small vessel ischemic disease. The visualized paranasal sinuses and mastoid air cells are clear. The surrounding soft tissues and osseous structures are unremarkable. IMPRESSION: 1. No acute intracranial abnormality. 2. 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 3. Multifocal bilateral encephalomalacia consistent with sequelae of remote insults. Radiation optimization: All CT scans at this facility use at least one of these dose optimization savanah hniques: automated exposure control mA and/or kV adjustment per patient size (includes targeted exam s where dose is matched to clinical indication) or iterative reconstruction.
[2025-01-17] MEDS: SODIUM BICARB 8.4% 50Meq/50ml SYR INJ IV ONE (18:34)
[2025-01-17] MEDS: DEXTROSE (50%) 50ML SYRG IV ONE (18:34)
[2025-01-17] MEDS: InsuLIN REG 1unit/0.01ml Soln (100units/ml) IV ONE (18:35)
[2025-01-17] MEDS: SODIUM CHLORIDE 0.9% 1,000 ML IV SCH (19:25)
[2025-01-17] MEDS: PIPERACILLIN-TAZOB 3.375GM 100 ML IV ONE (20:20)
[2025-01-17] MEDS ORDERED: PIPERACILLIN-TAZOB 3.375GM 100 ML IV SCH (22:00)
[2025-01-18 04:39] LABS: Alanine Aminotransferase 30 U/L (7-40); Alkaline Phosphatase 86 U/L (46-116); Anion Gap 8 (5-15); BUN/Creatinine Ratio 28.3 (10.0-20.0); Bilirubin, Total 0.5 mg/dL (0.2-1.0); Carbon Dioxide 25 mmol/L (20-31); Chloride 106 mmol/L (98-107); Potassium 4.5 mmol/L (3.5-5.1); Sodium 139 mmol/L (136-145)
[2025-01-18 04:45] LABS: Albumin 3.0 g/dL (3.2-4.8); Blood Urea Nitrogen 26 mg/dL (9-23); Calcium 7.8 mg/dL (8.7-10.4); Glucose 132 mg/dL (74-106); Total Protein 5.5 g/dL (5.7-8.2)
[2025-01-18] MEDS: LEVOTHYROXINE SODIUM 25 MCG TAB PO SCH (05:54)
[2025-01-18 06:32] LABS: Hematocrit 27.2 % (36.0-46.0); Hemoglobin 8.8 g/dL (12.2-16.2); Mean Corpuscular Hemoglobin 30.5 pg (28.0-32.0); Mean Corpuscular Volume 94.1 fL (80.0-100.0); Nucleated Red Blood Cells % 0.0 %
[2025-01-18 09:00] VITALS: BP 101/49; PULSE 66; RESP 16; TEMP 97.7; O2SAT 98
[2025-01-18] MEDS: PANTOPRAZOLE 40 MG/10 ML VIAL INJ IV SCH (10:08)
--- NOTE | 2025-01-18 10:12 | DVHPN2 ---
Subjective Patient denies any nausea or vomiting Reviewed: Care Plan, H&P, Labs Changes from previous H/P or p: No Changes General: Per HPI Gastrointestinal: Other (Hematemesis) Objective Vitals Vital Signs Date Time Temp Pulse Resp B/P (MAP) Pulse Ox O2 Delivery O2 Flow Rate FiO2 01/18/25 08:00 72 01/18/25 00:00 20 107/44 (65) 99 01/17/25 20:00 97.9 97.9 01/17/25 19:30 Nasal Cannula* 2 28 Intake/Output Intake and Output 01/18/25 07:00 Intake Total 100 ml Balance 100 ml Intake IV Total 100 ml General Appearance: Alert, Oriented X3, Cooperative HEENT: Atraumatic, PERRLA Lungs: Clear to auscultation, Normal air movement Cardiovascular: Normal S1, Normal S2 Abdomen: Normal bowel sounds, Soft, No tenderness, No hepatospenomegaly Genitourinary: No Apparent Abnormalities Musculoskeletal: Normal sensory function, Normal motor function Neuro: Normal gait, Normal speech Skin: Dry, Intact Psych/Mental Status: Mental status NL, Mood NL Medications Current Medications Medications Dose Ordered Sig/Lillie Route Start Time Stop Time Status Last Admin Dose Admin Piperacillin Sod/ Tazobactam Sod 100 ml @ 25 mls/hr Q8HR IV 01/17/25 22:00 Metronidazole 100 ml @ 100 mls/hr Q8HR IV 01/17/25 22:00 01/18/25 05:16 100 MLS/HR Sodium Chloride 1,000 ml @ 60 mls/hr [id number] IV 01/17/25 16:00 01/17/25 19:25 60 MLS/HR Acetaminophen/ Hydrocodone Bitart 1 tab Q4HP PRN PO 01/17/25 16:00 Ondansetron HCl 4 mg Q4HP PRN IV 01/17/25 16:00 Acetaminophen 650 mg Q6HP PRN PO 01/17/25 16:00 Morphine Sulfate 2 mg Q4HPRN PRN IV 01/17/25 16:00 Levothyroxine Sodium 75 mcg QAM PO 01/18/25 07:00 Diagnostic Test (Pha) 1 strip Q6HR 01/17/25 18:00 01/18/25 06:01 1 STRIP Insulin Human Regular Q6HR SC 01/17/25 18:00 01/18/25 00:36 3 UNITS Dextrose 50 ml UD PRN IV 01/17/25 16:15 Pantoprazole Sodium 40 mg BID IV 01/18/25 10:00 Levofloxacin/ Dextrose 100 ml @ 100 mls/hr DAILY IV 01/18/25 10:00 UNV Laboratory Results Laboratory Tests 01/18/25 04:14 01/18/25 06:18 Chemistry Test 01/17/25 15:28 01/18/25 04:14 Albumin 3.4 g/dL (3.2-4.8) 3.0 g/dL (3.2-4.8) L Calcium Level 8.9 mg/dL (8.7-10.4) 7.8 mg/dL (8.7-10.4) L Total Protein 5.8 g/dL (5.7-8.2) 5.5 g/dL (5.7-8.2) L Coagulation Test 01/17/25 15:28 Prothrombin Time 10.3 sec (9.3-11.8) Prothrombin Time INR 0.97 (0.9-1.15) Activated Partial Thromboplast Time 24.3 SEC (24.5-34.5) L LFT Test 01/17/25 15:28 01/18/25 04:14 Alanine Aminotransferase (ALT) 39 U/L (7-40) 30 U/L (7-40) Alkaline Phosphatase 117 U/L (46-116) H 86 U/L (46-116) Aspartate Amino Transferase (AST) 41 U/L (13-40) H 31 U/L (13-40) Total Bilirubin 0.4 mg/dL (0.2-1.0) 0.5 mg/dL (0.2-1.0) Urinalysis Test 01/17/25 14:19 Urine Color Yellow (Yellow) Urine Clarity Clear (Clear) Urine pH 5.5 (5.0-9.0) Urine Specific [place] 1.029 (1.001-1.035) Urine Protein Trace (Negative) H Urine Ketones Trace (Negative) Urine Blood Negative /uL (Negative) Urine Nitrite Negative (Negative) Urine Bilirubin Negative (Negative) Urine Urobilinogen Normal mg/dL (Negative) Urine Leukocyte Esterase 1+ /uL (Negative) Urine RBC 5 /hpf (0 - 4) Urine Microscopic WBC 5 /HPF (0-5) Urine Squamous Epithelial Cells Few /hpf (<5) Urine Bacteria None seen /hpf (None Seen) Urine Mucus Few (None Seen) Urine Glucose 2+ mg/dL (Normal) H Labs and/or images reviewed: Labs reviewed by me, Image(s) reviewed by me Assessment/Plan Assessment/Plan Impression: -rule out upper GI bleed -constipation -? Sepsis with colitis -UTI -history of dementia -anemia -recent history of sacral ulcer Plan: -GI consultation: Pending -continue gentle IV hydration -clear liquid diet if cleared by GI -check TSH -continue Flagyl, add Levaquin -Protonix 40 mg IV b.i.d. -repeat labs in a.m. Total time spent with patient discussing and formulating plan of care: 35 minutes. This medical document was created using an electronic medical record system with [employer] dictation system. Although this document has been carefully reviewed, there may still be some phonetic and typographical errors. These areas are purely typographical due to imperfections of the software programs, and do not reflect any compromise in the patient's medical care. Plan discussed with: Patient, Other (RN) My Orders Orders - WISAM MCKEON NP Procedure Category Date Status Time Pantoprazole PHA 01/18/25 In Process (Protonix) 10:00 Levofloxacin 500mg PHA 01/18/25 Logged (Levaquin 500mg/ 100m 10:00 Clear Liq Diet DIET 01/18/25 Transmitted Lunch Complete Blood Count LAB 01/19/25 Verified 04:00 Comprehensive LAB 01/19/25 Verified Metabolic Panel 04:00 Date of Service: Jan 18, 2025 Billing Provider: WISAM MCKEON NP Common Visit Codes: [id number] INP/OBS CARE(HIGH) WISAM MCKEON NP Jan 18, 2025 10:12
[2025-01-18 13:00] VITALS: BP 124/78; PULSE 76; RESP 16; TEMP 98.7; O2SAT 98
[2025-01-18 14:00] VITALS: BP 113/61; PULSE 64; RESP 17; TEMP 97.8
--- NOTE | 2025-01-18 16:22 | DVHINCON2 ---
Date of service: Jan 18, 2025 Referring Physician Elise Padilla NP Reason for Consultation Suspected upper GI bleed History of Present Illness Patient is an unfortunate 69-year-old female with a history of diabetes, hypertension, hyperlipidemia, dementia, question CVA, submandibular mass, recently admitted for dehydration and failure to thrive. Patient was admitted during this hospitalization for black emesis and a decrease in hemoglobin. She has had no significant melena or hematemesis since admission. Patient is not a good historian. History was obtained from the chart. GI consultation was obtained for possible endoscopy given the patient's hematemesis. Patient is on anticoagulation for history of CVA. Warfarin was held and patient was placed on a proton pump inhibitor. She was also given antibiotics for UTI. Prior GI history is not known. CT scan shows stercoral colitis and possible esophagitis and gastritis. Past Medical History As above Past Surgical History Noncontributory Family History: Patient reports no known family medical history. Social History Lives in a [facility] recently Tobacco and alcohol use history not known Allergies: Coded Allergies: Coconut (Cocos Nucifera) (Verified Allergy, Severe, 01/17/25) Anaphylaxis Home Meds Reported Medications Warfarin Sodium (Warfarin Sodium) Unknown Strength Tab, PO DAILY 01/09/23 Levothyroxine Sodium (Levothyroxine Sodium) 75 Mcg Tab, 1 TAB PO QAM 01/09/23 Current Medications Current Medications Medications (Trade) Dose Ordered Sig/Lillie Route PRN Reason Start Time Stop Time Status Last Admin Piperacillin Sod/ Tazobactam Sod 100 ml @ 25 mls/hr Q8HR IV 01/17/25 22:00 01/18/25 10:07 DC Metronidazole 100 ml @ 100 mls/hr Q8HR IV 01/17/25 22:00 01/18/25 14:54 Levothyroxine Sodium (Synthroid Tablet) 75 mcg QAM PO 01/18/25 07:00 Diagnostic Test (Pha) (Accu-Chek Comfort Curve T) 1 strip Q6HR 01/17/25 18:00 01/18/25 12:00 Insulin Human Regular (InsuLIN R) Q6HR SC 01/17/25 18:00 01/18/25 00:36 Ceftriaxone Sodium 50 ml @ 100 mls/hr DAILY@09 IV 01/17/25 17:30 01/17/25 17:33 DC Pantoprazole Sodium (Protonix) 40 mg BID IV 01/18/25 10:00 01/18/25 10:08 Levofloxacin/ Dextrose 100 ml @ 100 mls/hr DAILY IV 01/18/25 10:00 01/18/25 14:53 Review of Systems As per HPI Vital Signs Vital Signs Date Time Temp Pulse Resp B/P (MAP) Pulse Ox O2 Delivery O2 Flow Rate FiO2 01/18/25 09:00 97.7 66 16 101/49 (66) 98 97.7 01/17/25 19:30 Nasal Cannula* 2 28 Physical Exam General: Disheveled HEENT: NC/AT EOMI PERRLA O/P clear, no JVD or cervical lymphadenopathy, no scleral icterus Heart: Regular rate and rhythm, no murmurs rubs or gallops Lungs: Clear to auscultation bilaterally, no wheezes rales or rhonchi Abdomen: Soft, nontender, nondistended, no organomegaly, normoactive bowel sounds Extremity: No clubbing cyanosis or edema, no rashes or bruises Neuro: Cranial nerves 2-12 grossly intact, moves all four extremities, no asterixis Labs/Diagnostic Data Labs Test 01/18/25 12:37 01/18/25 06:18 01/18/25 04:17 01/18/25 04:14 Range/Units POC Glucose 100 70-106 mg/dl White Blood Count 12.1 H 4.4-10.8 10^3/uL Red Blood Count 2.89 L 4.0-5.20 10^6/uL Hemoglobin 8.8 #L 12.2-16.2 g/dL Hematocrit 27.2 #L 36.0-46.0 % Mean Corpuscular Volume 94.1 80.0-100.0 fL Mean Corpuscular Hemoglobin 30.5 28.0-32.0 pg Mean Corpuscular Hemoglobin Concent 32.4 32.0-36.0 g/dL Red Cell Distribution Width 15.5 H 11.8-14.3 % Platelet Count 230 140-450 10^3/uL Mean Platelet Volume 7.9 6.9-10.8 fL Neutrophils (%) (Auto) 76.8 37.0-80.0 % Lymphocytes (%) (Auto) 17.0 10.0-50.0 % Monocytes (%) (Auto) 5.0 0.0-12.0 % Eosinophils (%) (Auto) 0.9 0.0-7.0 % Basophils (%) (Auto) 0.3 0.0-2.0 % Neutrophils # (Auto) 9.3 H 1.6-8.6 10 ^3/uL Lymphocytes # (Auto) 2.0 0.4-5.4 10 ^3/uL Monocytes # (Auto) 0.6 0-1.3 10 ^3/uL Eosinophils # (Auto) 0.1 0-0.8 10 ^3/uL Basophils # (Auto) 0 0-0.2 10 ^3/uL Nucleated Red Blood Cells 0.0 % Thyroid Stimulating Hormone (TSH) 31.56 H 0.55-4.78 uIU/mL Sodium Level 139 136-145 mmol/L Potassium Level 4.5 3.5-5.1 mmol/L Chloride Level 106 98-107 mmol/L Carbon Dioxide Level 25 20-31 mmol/L Anion Gap 8 5-15 Blood Urea Nitrogen 26 #H 9-23 mg/dL Creatinine 0.92 0.550-1.02 mg/dL Glomerular Filtration Rate Calc 67 >90 mL/min BUN/Creatinine Ratio 28.3 H 10.0-20.0 Serum Glucose 132 H 74-106 mg/dL Calcium Level 7.8 L 8.7-10.4 mg/dL Total Bilirubin 0.5 0.2-1.0 mg/dL Aspartate Amino Transferase (AST) 31 13-40 U/L Alanine Aminotransferase (ALT) 30 7-40 U/L Alkaline Phosphatase 86 46-116 U/L Total Protein 5.5 L 5.7-8.2 g/dL Albumin 3.0 L 3.2-4.8 g/dL Test 01/17/25 22:16 01/17/25 16:40 01/17/25 15:28 01/17/25 14:19 Range/Units Stool Occult Blood Negative Negative Stool Occult Blood Sample #3 Negative Lactic Acid Level 2.3 *H 0.4-2.0 mmol/L Troponin I High Sensitivity 8 </=34 ng/L Reticulocyte Count (auto) 2.87 H 0.5-1.5 % Prothrombin Time 10.3 9.3-11.8 sec Prothrombin Time INR 0.97 0.9-1.15 Activated Partial Thromboplast Time 24.3 L 24.5-34.5 SEC Iron Level 21 L 50-170 ug/dL Total Iron Binding Capacity 212 L 250-425 ug/dL Percent Iron Saturation 9.9 L 15-50 % Urine Color Yellow Yellow Urine Clarity Clear Clear Urine pH 5.5 5.0-9.0 Urine Specific [place] 1.029 1.001-1.035 Urine Protein Trace H Negative Urine Ketones Trace Negative Urine Blood Negative Negative /uL Urine Nitrite Negative Negative Urine Bilirubin Negative Negative Urine Urobilinogen Normal Negative mg/dL Urine Leukocyte Esterase 1+ Negative /uL Urine RBC 5 0 - 4 /hpf Urine Microscopic WBC 5 0-5 /HPF Urine Squamous Epithelial Cells Few <5 /hpf Urine Bacteria None seen None Seen /hpf Urine Mucus Few None Seen Urine Glucose 2+ H Normal mg/dL Urine Opiates Screen Neg NEGATIVE Urine Fentanyl Screen Neg NEGATIVE Urine Barbiturates Screen Neg NEGATIVE Urine Phencyclidine Screen Neg NEGATIVE Urine Amphetamines Screen Neg NEGATIVE Urine Benzodiazepines Screen Neg NEGATIVE Urine Cocaine Screen Neg NEGATIVE Urine Cannabinoids Screen Neg NEGATIVE Microbiology Date/Time Source Procedure Growth Status 01/17/25 15:28 Blood Blood Culture - Preliminary NO GROWTH AFTER 24 HOURS OF INCUBATION. Resulted 01/17/25 14:19 Voided Urine Urine Culture - Preliminary Resulted Assessment 1. Suspected hematemesis 2. History of anticoagulant use 3. Dementia 4. Anemia Differential diagnosis includes esophagitis versus gastritis versus Herlinda- Batista tear versus peptic ulcer disease versus other Problems(with codes): (1) Dehydration (2) Generalized weakness (3) Failure to thrive (4) Hyperglycemia (5) Dementia (6) Diabetes (7) Colitis Plan/Recommendation 1. Hold anticoagulation 2. Continue with proton pump inhibitor 3. Diet as tolerated 4. Follow H&H and transfuse as needed 5. Given patient's comorbidities we will hold off on endoscopy at this time 5. Consider endoscopy if the patient has further episodes of hematemesis her hemoglobin declines 6. We will follow up Plan discussed with: Patient COBY SINGH MD Jan 18, 2025 16:22
[2025-01-18 17:00] VITALS: BP 103/50; PULSE 77; RESP 16; TEMP 97.6; O2SAT 89
[2025-01-18 20:30] VITALS: PULSE 69; PULSE 78; RESP 18; O2SAT 93
[2025-01-18] MEDS: HYDROcodone-ACET 5/325MG TAB PO PRN (20:34)
[2025-01-18 21:00] VITALS: BP 93/60; PULSE 69; RESP 18; TEMP 97.6; O2SAT 93
[2025-01-19] VITALS (7 sets, daily range): BP systolic 102–125; BP diastolic 54–84; PULSE 60–89; RESP 16–18; TEMP 97–97.8; O2SAT 91–96
[2025-01-19 05:17] LABS: Hematocrit 27.3 % (36.0-46.0); Hemoglobin 8.9 g/dL (12.2-16.2); Mean Corpuscular Hemoglobin 30.4 pg (28.0-32.0); Mean Corpuscular Volume 92.6 fL (80.0-100.0); Nucleated Red Blood Cells % 0.1 %
[2025-01-19 05:32] LABS: Alanine Aminotransferase 27 U/L (7-40); Alkaline Phosphatase 81 U/L (46-116); Anion Gap 8 (5-15); BUN/Creatinine Ratio 24.7 (10.0-20.0); Blood Urea Nitrogen 18 mg/dL (9-23); Carbon Dioxide 25 mmol/L (20-31); Potassium 4.0 mmol/L (3.5-5.1); Sodium 140 mmol/L (136-145)
[2025-01-19 05:33] LABS: Bilirubin, Total 0.3 mg/dL (0.2-1.0)
[2025-01-19 05:37] LABS: Albumin 3.1 g/dL (3.2-4.8); Calcium 8.2 mg/dL (8.7-10.4); Chloride 107 mmol/L (98-107); Glucose 110 mg/dL (74-106); Total Protein 5.5 g/dL (5.7-8.2)
--- NOTE | 2025-01-19 14:36 | DVHDS2 ---
Discharge Summary Date of Admission Jan 17, 2025 at 17:25 Date of Discharge: Jan 19, 2025 Admitting Diagnosis Upper GI bleed Labs/Diagnostic Data: Laboratory Results Test 01/19/25 11:47 01/19/25 04:50 01/18/25 04:17 01/17/25 22:16 POC Glucose 137 mg/dl (70-106) White Blood Count 9.4 10^3/uL (4.4-10.8) Red Blood Count 2.94 10^6/uL (4.0-5.20) Hemoglobin 8.9 g/dL (12.2-16.2) Hematocrit 27.3 % (36.0-46.0) Mean Corpuscular Volume 92.6 fL (80.0-100.0) Mean Corpuscular Hemoglobin 30.4 pg (28.0-32.0) Mean Corpuscular Hemoglobin Concent 32.8 g/dL (32.0-36.0) Red Cell Distribution Width 15.5 % (11.8-14.3) Platelet Count 183 10^3/uL (140-450) Mean Platelet Volume 8.2 fL (6.9-10.8) Neutrophils (%) (Auto) 65.2 % (37.0-80.0) Lymphocytes (%) (Auto) 23.9 % (10.0-50.0) Monocytes (%) (Auto) 6.9 % (0.0-12.0) Eosinophils (%) (Auto) 3.2 % (0.0-7.0) Basophils (%) (Auto) 0.8 % (0.0-2.0) Neutrophils # (Auto) 6.1 10 ^3/uL (1.6-8.6) Lymphocytes # (Auto) 2.2 10 ^3/uL (0.4-5.4) Monocytes # (Auto) 0.6 10 ^3/uL (0-1.3) Eosinophils # (Auto) 0.3 10 ^3/uL (0-0.8) Basophils # (Auto) 0.1 10 ^3/uL (0-0.2) Nucleated Red Blood Cells 0.1 % Sodium Level 140 mmol/L (136-145) Potassium Level 4.0 mmol/L (3.5-5.1) Chloride Level 107 mmol/L (98-107) Carbon Dioxide Level 25 mmol/L (20-31) Anion Gap 8 (5-15) Blood Urea Nitrogen 18 mg/dL (9-23) Creatinine 0.73 mg/dL (0.550-1.02) Glomerular Filtration Rate Calc 89 mL/min (>90) BUN/Creatinine Ratio 24.7 (10.0-20.0) Serum Glucose 110 mg/dL (74-106) Calcium Level 8.2 mg/dL (8.7-10.4) Total Bilirubin 0.3 mg/dL (0.2-1.0) Aspartate Amino Transferase (AST) 27 U/L (13-40) Alanine Aminotransferase (ALT) 27 U/L (7-40) Alkaline Phosphatase 81 U/L (46-116) Total Protein 5.5 g/dL (5.7-8.2) Albumin 3.1 g/dL (3.2-4.8) Thyroid Stimulating Hormone (TSH) 31.56 uIU/mL (0.55-4.78) Stool Occult Blood Negative (Negative) Stool Occult Blood Sample #3 (Negative) Test 01/17/25 16:40 01/17/25 15:28 01/17/25 14:19 Lactic Acid Level 2.3 mmol/L (0.4-2.0) Troponin I High Sensitivity 8 ng/L (</=34) Reticulocyte Count (auto) 2.87 % (0.5-1.5) Prothrombin Time 10.3 sec (9.3-11.8) Prothrombin Time INR 0.97 (0.9-1.15) Activated Partial Thromboplast Time 24.3 SEC (24.5-34.5) Iron Level 21 ug/dL (50-170) Total Iron Binding Capacity 212 ug/dL (250-425) Percent Iron Saturation 9.9 % (15-50) Urine Color Yellow (Yellow) Urine Clarity Clear (Clear) Urine pH 5.5 (5.0-9.0) Urine Specific [place] 1.029 (1.001-1.035) Urine Protein Trace (Negative) Urine Ketones Trace (Negative) Urine Blood Negative /uL (Negative) Urine Nitrite Negative (Negative) Urine Bilirubin Negative (Negative) Urine Urobilinogen Normal mg/dL (Negative) Urine Leukocyte Esterase 1+ /uL (Negative) Urine RBC 5 /hpf (0 - 4) Urine Microscopic WBC 5 /HPF (0-5) Urine Squamous Epithelial Cells Few /hpf (<5) Urine Bacteria None seen /hpf (None Seen) Urine Mucus Few (None Seen) Urine Glucose 2+ mg/dL (Normal) Urine Opiates Screen Neg (NEGATIVE) Urine Fentanyl Screen Neg (NEGATIVE) Urine Barbiturates Screen Neg (NEGATIVE) Urine Phencyclidine Screen Neg (NEGATIVE) Urine Amphetamines Screen Neg (NEGATIVE) Urine Benzodiazepines Screen Neg (NEGATIVE) Urine Cocaine Screen Neg (NEGATIVE) Urine Cannabinoids Screen Neg (NEGATIVE) Other Laboratory Tests 01/19/25 04:50 Brief Hx & Hospital Course: History of Present Illness Wendy Quiñones is a 69-year-old female with past medical history of dementia, CVA, diabetes, hyperlipidemia, hypertension, and thyroid disease who presents to the ED with episodes of black emesis that started today while she was at [facility] per records. Upon examination patient on 2 L nasal cannula. Patient is able to wake up and open her eyes however takes a great deal of tactile stimuli to arouse patient. Course of hospitalization: Patient was noted to have elevated white blood cell count, for which she was placed on Levaquin and Flagyl. Patient's H and H holding over the past 24 hours. GI consultation was obtained without any recommendations for endoscopy at this time. Stool for occult blood is negative. Patient has had her diet advanced. She will be discharged back to [facility] for physical therapy and continuation of antibiotic therapy. She is agreeable with discharge plan. All questions answered. Physical examination General: Alert and Oriented x3. No acute distress. Well-nourished. Eyes: EOMI. Anicteric. HENT: Moist mucous membranes. Lungs: Clear to auscultation bilaterally. No accessory muscle use. Cardiovascular: Regular rate and rhythm. No murmur. No JVD. Abdomen: Soft, non-tender and non-distended. No palpable masses. Extremities: No edema. Non-tender. Skin: No rashes or lesions. Warm. Neurologic: No focal neurological deficits. CN II-XII grossly intact, but not individually tested. Psychiatric: Cooperative. Appropriate mood and affect. Total time spent with patient discussing and formulating plan of care: 35 minutes. This medical document was created using an electronic medical record system with import2 dictation system. Although this document has been carefully reviewed, there may still be some phonetic and typographical errors. These areas are purely typographical due to imperfections of the software programs, and do not reflect any compromise in the patient's medical care. Consults/Reason for consult Gastroenterology: GI bleed Condition at Discharge: Fair Final Diagnosis/Problems List -ruled out upper GI bleed -constipation -? Sepsis with colitis -UTI -history of dementia -anemia -recent history of sacral ulcer Discharge Disposition: Nursing Home Facility Discharge Instruct/Medications Diet: Regular Activity: No Restrictions, As Tolerated Activity comment: Physical therapy Follow Up/Referral: Per accepting provider Medications: Refer to medication reconciliation form Scheduled Levothyroxine Sodium (Levothyroxine Sodium), 1 TAB PO QAM, (Reported) Warfarin Sodium (Warfarin Sodium), Unknown Dose PO DAILY, (Reported) 36 Discharge Statement: "Patient was advised to return to the ER or call 911 if any headaches, dizziness, shortness of breath, chest pain, abdominal pain, bleeding, fevers, or worsening of medical condition. Patient was counseled about treatment plan, medications, possible side effects, patientverbalized understanding. All questions were answered to the best of my ability. This discharge took greater then 30 minutes in planning, reviewing documentation, counseling the patient, and discussing with other team members." ASSESSMENT ASSESSMENT Assessment Date of Service: Jan 19, 2025 Billing Provider: WISAM MCKEON NP Common Visit Codes: 47283-QLU/OBS DISCH DAY >30min WISAM MCKEON NP Jan 19, 2025 14:36
--- NOTE | 2025-01-19 16:20 | PRN ---
Misceleneous Note Note Note 01/19/2025 Subjective: No gross bleeding. Patient is being discharged to post acute care Current Medications Medications (Trade) Dose Ordered Sig/Lillie Route Start Time Stop Time Status Last Admin Dose Admin Metronidazole 100 ml @ 100 mls/hr Q8HR IV 01/17/25 22:00 01/19/25 14:44 100 MLS/HR Sodium Chloride 1,000 ml @ 60 mls/hr [id number] IV 01/17/25 16:00 01/18/25 23:17 60 MLS/HR Acetaminophen/ Hydrocodone Bitart ([place] 5/325MG Tab) 1 tab Q4HP PRN PO 01/17/25 16:00 01/18/25 20:34 1 TAB Ondansetron HCl (Zofran) 4 mg Q4HP PRN IV 01/17/25 16:00 Acetaminophen (Tylenol Tablet) 650 mg Q6HP PRN PO 01/17/25 16:00 Morphine Sulfate 2 mg Q4HPRN PRN IV 01/17/25 16:00 Levothyroxine Sodium (Synthroid Tablet) 75 mcg QAM PO 01/18/25 07:00 01/19/25 06:08 75 MCG Diagnostic Test (Pha) (Accu-Chek Comfort Curve T) 1 strip Q6HR 01/17/25 18:00 01/19/25 11:48 1 STRIP Insulin Human Regular (InsuLIN R) Q6HR SC 01/17/25 18:00 01/19/25 11:52 2 UNITS Dextrose 50 ml UD PRN IV 01/17/25 16:15 Pantoprazole Sodium (Protonix) 40 mg BID IV 01/18/25 10:00 01/19/25 09:38 40 MG Levofloxacin/ Dextrose 100 ml @ 100 mls/hr DAILY IV 01/18/25 10:00 01/19/25 09:38 100 MLS/HR Vital Signs Date Time Temp Pulse Resp B/P (MAP) Pulse Ox O2 Delivery O2 Flow Rate FiO2 01/19/25 13:00 97.1 89 18 122/66 (84) 91 97.1 01/19/25 08:00 Room Air* 0 21 Physical exam General: Disheveled HEENT: NC/AT EOMI PERRLA O/P clear, no JVD or cervical lymphadenopathy, no scleral icterus Heart: Regular rate and rhythm, no murmurs rubs or gallops Lungs: Clear to auscultation bilaterally, no wheezes rales or rhonchi Abdomen: Soft, nontender, nondistended, no organomegaly, normoactive bowel sounds Extremity: No clubbing cyanosis or edema, no rashes or bruises Neuro: Cranial nerves 2-12 grossly intact, moves all four extremities, no asterixis Impression: 1. Anemia 2. Suspected hematemesis 3. History of anticoagulant use 4. History of dementia, UTI question sepsis Hemoglobin stable no evidence of bleeding patient was on anticoagulation which is being held Recommendations: 1. Follow H&H at post acute care facility 2. Consider Esophagogastroduodenoscopy if the patient has further episodes of anemia and/or hematemesis Or melena once anticoagulation restarts 3. I will be signing off COBY SINGH MD Jan 19, 2025 16:20
== END 2025-01-19 19:35 | DRG 871 ==
LOC: EDBD 13:06 → ER 13:09 → OVERFLOW 15:57 → UNDOADMIN 15:57 → OVERFLOW 17:25 → TELE-WESTW 01-18 13:22
DX: A41.9 Sepsis, unspecified organism (principal); G93.41 Metabolic encephalopathy; J96.01 Acute respiratory failure with hypoxia; E87.20 Acidosis, unspecified; N17.9 Acute kidney failure, unspecified; N30.01 Acute cystitis with hematuria; A04.9 Bacterial intestinal infection, unspecified; F03.90 Unspecified dementia, unspecified severity, without behavioral disturbance, psychotic disturbance, mood disturbance, and anxiety; D64.9 Anemia, unspecified; E86.0 Dehydration; I10 Essential (primary) hypertension; E11.9 Type 2 diabetes mellitus without complications; E03.9 Hypothyroidism, unspecified; E78.5 Hyperlipidemia, unspecified; E87.5 Hyperkalemia; K59.00 Constipation, unspecified; Z74.01 Bed confinement status; Z79.01 Long term (current) use of anticoagulants; Z79.4 Long term (current) use of insulin; Z86.73 Personal history of transient ischemic attack (TIA), and cerebral infarction without residual deficits; Z87.11 Personal history of peptic ulcer disease; Z91.018 Allergy to other foods
CPT/HCPCS: 36415; 70450; 71045; 74176; 80053; 80307; 81001; 82270; 82962; 83010; 83540; 83550; 83605; 84132; 84443; 84484; 85025; 85045; 85610; 85730; 86850; 86880; 87040; 87086; 93005; 94640; 96361; 96374; G0378; J1815; J1956; J2470; J2543; J3490